=== PATIENT | female | born 1980 | race Caucasian/White ===

== ENCOUNTER 2021-08-15 04:02 | Emergency (ER) | payer OTHER ==
[2021-08-15] MEDS ORDERED: Hydromorphone 1 mg/ml Injection IV ONE (04:36)
[2021-08-15] MEDS ORDERED: Zofran 4 MG/2 ML VIAL IV ONE (04:36)
[2021-08-15] MEDS ORDERED: Sodium Chloride 0.9% 1000 ML 1,000 ML IV STA (04:36)
--- NOTE | 2021-08-15 04:39 | ERPHSYRPT ---
- History of Present Illness Time Seen by Provider: 08/15/21 04:30 Historian: patient, family Exam Limitations: no limitations Patient Subjective Stated Complaint: Pt states "My upper right sided of my back started hurting around 1430 and I started vomiting." Triage Nursing Assessment: Pt ambulatory to bed by self, pt alert and oriented x3, pt c/o R upper back pain since 1430, pt has vomited 6+ times since then, pt denies diarrhea, pt still has all organs including gallbladder, pt is afebrile, pt rates pain 9/10 Physician History: This is a 40-year-old white female who at 230 this morning had sudden onset of right back pain with multiple episodes of vomiting. She had this symptom a week ago. Last night she ate British food. A week ago she had tater tot casserole. Patient felt nauseated, bloated belching gassy. She does not have chest pain and denies abdominal pain. Timing/Duration: today Quality: aching Abdominal Pain Onset Location: flank (Right) Pain Radiation: no radiation Severity of Pain-Max: moderate Severity of Pain-Current: moderate Modifying Factors: Improves With: vomiting Associated Symptoms: nausea, vomiting Previous symptoms: same symptoms as today, no recent treatment Allergies/Adverse Reactions: No Known Drug Allergies Allergy (Verified 08/15/21 04:19) Hx Tetanus, Diphtheria Vaccination/Date Given: Yes Hx Influenza Vaccination/Date Given: No Hx Pneumococcal Vaccination/Date Given: No Immunizations Up to Date: Yes Travel Risk - International Travel Have you traveled outside of the country in past 3 weeks: No - Coronavirus Screening Are you exhibiting any of the following symptoms?: No Close contact with a COVID-19 positive Pt in past 14-21 Days: No - Vaccine Status Have you recieved a Covid-19 vaccination: No - Review of Systems Constitutional: No Symptoms Eyes: No Symptoms Ears, Nose, & Throat: No Symptoms Respiratory: No Symptoms Cardiac: No Symptoms Abdominal/Gastrointestinal: Nausea, Vomiting, Appetite Changes Genitourinary Symptoms: Flank Pain (Right flank) Musculoskeletal: No Symptoms Skin: No Symptoms Neurological: No Symptoms Psychological: No Symptoms Endocrine: No Symptoms Hematologic/Lymphatic: No Symptoms Immunological/Allergic: No Symptoms All Other Systems: Reviewed and Negative - Past Medical History Pertinent Past Medical History: No - Past Surgical History Past Surgical History: No - Social History Smoking Status: Current every day smoker Exposure to second hand smoke: Yes Drug Use: none Patient Lives Alone: No - Female History Hx Last Menstrual Period: 07/15/2021 Hx Now: No - Nursing Vital Signs Nursing Vital Signs: Initial Vital Signs Temperature 97.2 F 08/15/21 04:20 Pulse Rate 63 08/15/21 04:20 Respiratory Rate 16 08/15/21 04:20 Blood Pressure 143/66 08/15/21 04:20 O2 Sat by Pulse Oximetry 99 08/15/21 04:20 Pain Scale Pain Intensity [Right Back] 9 Pain Intensity 4 - Physical Exam General Appearance: mild distress, alert, anxiety Eye Exam: PERRL/EOMI, eyes nml inspection Ears, Nose, Throat Exam: normal ENT inspection, moist mucous membranes Neck Exam: normal inspection, non-tender, supple, full range of motion Respiratory Exam: normal breath sounds, lungs clear, No chest tenderness, No respiratory distress Cardiovascular Exam: regular rate/rhythm, normal heart sounds, normal peripheral pulses Gastrointestinal/Abdomen Exam: soft, normal bowel sounds, No tenderness Pelvic Exam: not done Rectal Exam: not done Back Exam: normal inspection, normal range of motion, other (Right back/scapular pain), No CVA tenderness, No vertebral tenderness Extremity Exam: normal inspection, normal range of motion, pelvis stable Neurologic Exam: alert, oriented x 3, cooperative, 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, normal mood/affect, nml cerebellar function, nml station & gait, sensation nml Skin Exam: normal color, warm, dry Lymphatic Exam: No adenopathy SpO2 Interpretation: normal SpO2: 99 O2 Delivery: Room Air - Course Nursing assessment & vital signs reviewed: Yes Ordered Tests: Active Orders 24 hr Category Date Time Status IV Insertion STAT Care 08/15/21 04:36 Active ABDOMEN AND PELVIS W/0 CONTRAS [CT] Stat Exams 08/15/21 04:37 Taken AMYLASE Stat Lab 08/15/21 04:42 Completed CBC W DIFF Stat Lab 08/15/21 04:42 Completed CMP Stat Lab 08/15/21 04:42 Completed CULTURE,URINE Stat Lab 08/15/21 04:39 Received HCG,QUALITATIVE URINE Stat Lab 08/15/21 04:38 Completed LIPASE Stat Lab 08/15/21 04:42 Completed Lactic Acid Stat Lab 08/15/21 04:45 Completed UA W/RFX CULTURE Stat Lab 08/15/21 04:39 Completed Medication Summary Discontinued Medications Generic Name Dose Route Start Last Admin Trade Name Gonzalo PRN Reason Stop Dose Admin Hydromorphone HCl 1 mg 08/15/21 04:36 08/15/21 04:42 Hydromorphone 1 Mg/1ml Inj 1 Mg/Ml Syringe IV 08/15/21 04:37 1 mg STAT ONE Administration Hydromorphone HCl Confirm 08/15/21 04:40 Hydromorphone 1 Mg/1ml Inj 1 Mg/Ml Syringe Administered 08/15/21 04:41 Dose 1 mg .ROUTE .STK-MED ONE Sodium Chloride 1,000 mls @ 999 mls/hr 08/15/21 04:36 08/15/21 06:28 Sodium Chloride 0.9% 1000 Ml IV 08/15/21 05:36 Infused .Q1H1M STA Infusion Sodium Chloride Confirm 08/15/21 04:40 Sodium Chloride 0.9% 1000 Ml Administered 08/15/21 04:41 Dose 1,000 mls @ ud .ROUTE .STK-MED ONE Ondansetron HCl 4 mg 08/15/21 04:36 08/15/21 04:42 Ondansetron Hcl 4 Mg/2 Ml Vial IV 08/15/21 04:37 4 mg STAT ONE Administration Ondansetron HCl Confirm 08/15/21 04:40 Ondansetron Hcl 4 Mg/2 Ml Vial Administered 08/15/21 04:41 Dose 4 mg .ROUTE .STK-MED ONE Lab/Rad Data: Laboratory Result Diagrams 08/15/21 04:42 08/15/21 04:42 Laboratory Results 08/15/21 08/15/21 08/15/21 Range/Units 04:45 04:42 04:42 WBC 14.5 H (4.0-10.5) x10^3/uL RBC 4.44 (4.1-5.4) x10^6/uL Hgb 13.7 (12.0-16.0) g/dL Hct 41.6 (35-47) % MCV 93.7 (78-100) fL MCH 30.9 (26-32) pg MCHC 32.9 (32-36) g/dL RDW 13.2 (11.5-14.0) % Plt Count 278 (150-450) x10^3/uL MPV 8.6 (7.5-11.0) fL Gran % 67.9 H (36.0-66.0) % Immature Gran % (Auto) 0.4 (0.00-0.4) % Nucleat RBC Rel Count 0.0 (0.00-0.1) % Eos # (Auto) 0.43 (0-0.5) x10^3/uL Immature Gran # (Auto) 0.06 H (0.00-0.03) x10^3u/L Absolute Lymphs (auto) 2.96 (1.0-4.6) x10^3/uL Absolute Monos (auto) 1.08 (0.0-1.3) x10^3/uL Absolute Nucleated RBC 0.00 (0.00-0.01) x10^3u/L Lymphocytes % 20.4 L (24.0-44.0) % Monocytes % 7.5 (0.0-12.0) % Eosinophils % 3.0 (0.00-5.0) % Basophils % 0.8 (0.0-0.4) % Absolute Granulocytes 9.85 H (1.4-6.9) x10^3/uL Basophils # 0.11 (0-0.4) x10^3/uL Sodium 139 (137-145) mmol/L Potassium 3.5 (3.5-5.1) mmol/L Chloride 103 (98-107) mmol/L Carbon Dioxide 27 (22-30) mmol/L Anion Gap 12.9 (5-15) MEQ/L BUN 13 (7-17) mg/dL Creatinine 0.74 (0.52-1.04) mg/dL Estimated GFR > 60.0 ML/MIN Glucose 120 H (74-106) mg/dL Lactic Acid 1.0 (0.4-2.0) Calcium 9.5 (8.4-10.2) mg/dL Total Bilirubin 1.70 H (0.2-1.3) mg/dL AST 22 (14-36) U/L ALT 15 (0-35) U/L Alkaline Phosphatase 72 (38-126) U/L Serum Total Protein 8.2 (6.3-8.2) g/dL Albumin 4.4 (3.5-5.0) g/dL Amylase 70 (30-110) U/L Lipase 113 (23-300) U/L Urinalys Dipstick Clnc Urine Color (YELLOW) Urine Appearance (CLEAR) Urine pH (5-6) Ur Specific [place] (1.005-1.025) POC Urine Protein Conf (Negative) Urine Ketones (NEGATIVE) Urine Nitrite (NEGATIVE) Urine Bilirubin (NEGATIVE) Urine Urobilinogen (0-1) mg/dL Urine Leukocytes (NEGATIVE) Urine WBC (Auto) (0-5) /HPF Urine RBC (Auto) (0-2) /HPF U Epithel Cells (Auto) (FEW) /HPF Urine Bacteria (Auto) (NEGATIVE) /HPF Urine RBC (0-5) Eric/ul Urine Mucus (Auto) (NEGATIVE) /HPF Ur Culture Indicated? Urine Glucose (NEGATIVE) mg/dL Urine HCG, Qual (Negative) 08/15/21 08/15/21 Range/Units 04:39 04:38 WBC (4.0-10.5) x10^3/uL RBC (4.1-5.4) x10^6/uL Hgb (12.0-16.0) g/dL Hct (35-47) % MCV (78-100) fL MCH (26-32) pg MCHC (32-36) g/dL RDW (11.5-14.0) % Plt Count (150-450) x10^3/uL MPV (7.5-11.0) fL Gran % (36.0-66.0) % Immature Gran % (Auto) (0.00-0.4) % Nucleat RBC Rel Count (0.00-0.1) % Eos # (Auto) (0-0.5) x10^3/uL Immature Gran # (Auto) (0.00-0.03) x10^3u/L Absolute Lymphs (auto) (1.0-4.6) x10^3/uL Absolute Monos (auto) (0.0-1.3) x10^3/uL Absolute Nucleated RBC (0.00-0.01) x10^3u/L Lymphocytes % (24.0-44.0) % Monocytes % (0.0-12.0) % Eosinophils % (0.00-5.0) % Basophils % (0.0-0.4) % Absolute Granulocytes (1.4-6.9) x10^3/uL Basophils # (0-0.4) x10^3/uL Sodium (137-145) mmol/L Potassium (3.5-5.1) mmol/L Chloride (98-107) mmol/L Carbon Dioxide (22-30) mmol/L Anion Gap (5-15) MEQ/L BUN (7-17) mg/dL Creatinine (0.52-1.04) mg/dL Estimated GFR ML/MIN Glucose (74-106) mg/dL Lactic Acid (0.4-2.0) Calcium (8.4-10.2) mg/dL Total Bilirubin (0.2-1.3) mg/dL AST (14-36) U/L ALT (0-35) U/L Alkaline Phosphatase (38-126) U/L Serum Total Protein (6.3-8.2) g/dL Albumin (3.5-5.0) g/dL Amylase (30-110) U/L Lipase (23-300) U/L Urinalys Dipstick Clnc MAIN LAB Urine Color YELLOW (YELLOW) Urine Appearance CLEAR (CLEAR) Urine pH 5.5 (5-6) Ur Specific [place] >=1.030 (1.005-1.025) POC Urine Protein Conf NEGATIVE (Negative) Urine Ketones NEGATIVE (NEGATIVE) Urine Nitrite NEGATIVE (NEGATIVE) Urine Bilirubin NEGATIVE (NEGATIVE) Urine Urobilinogen 0.2 (0-1) mg/dL Urine Leukocytes TRACE (NEGATIVE) Urine WBC (Auto) 0-2 (0-5) /HPF Urine RBC (Auto) 0-2 (0-2) /HPF U Epithel Cells (Auto) RARE (FEW) /HPF Urine Bacteria (Auto) RARE (NEGATIVE) /HPF Urine RBC TRACE-LYSED (0-5) Eric/ul Urine Mucus (Auto) SLIGHT (NEGATIVE) /HPF Ur Culture Indicated? YES Urine Glucose NEGATIVE (NEGATIVE) mg/dL Urine HCG, Qual NEGATIVE (Negative) - Progress Progress: improved, re-examined Progress Note: 08/15/21 06:47 CAT scan of abdomen pelvis showed multiple layering gallstones. There is a thickened gallbladder wall suggesting cholecystitis. No evidence of pericholecystic fluid. Medical decision making: This patient has had and will have recurrent symptoms secondary to evidence of cholecystitis and cholelithiasis. We will try to make arrangements for her to have an outpatient gallbladder ultrasound. Patient states that her symptoms have significantly improved but she can still feel a little bit of the pain. 08/15/21 06:51 Counseled pt/family regarding: lab results, diagnosis, need for follow-up, rad results - Departure Departure Disposition: Home Clinical Impression: Cholecystitis with cholelithiasis Condition: Stable Critical Care Time: No Referrals: OSMIN DUNHAM MD [Primary Care Provider] - Follow up/PCP as directed Additional Instructions: Avoid fatty greasy spicy foods. Take your medication as prescribed. Follow-up at your scheduled gallbladder ultrasound date. Follow-up with your primary care doctor for referral to a general surgeon to discuss the indications for cholecystectomy. Return to the emergency department if symptoms worsen Prescriptions: Ondansetron ODT 4 MG [Zofran Odt 4 mg] 4 mg PO Q6H PRN PRN #10 tablet PRN Reason: Vomiting Hydrocodone/APAP 5/325 [[place] 5/325 mg] 1 each PO Q8H PRN PRN #9 tablet MDD 9 PRN Reason: Pain
[2021-08-15] MEDS ORDERED: Zofran 4 MG/2 ML VIAL ONE (04:40)
[2021-08-15] MEDS ORDERED: Hydromorphone 1 mg/ml Injection ONE (04:40)
[2021-08-15] MEDS ORDERED: Sodium Chloride 0.9% 1000 ML 1,000 ML ONE (04:40)
[2021-08-15 04:45] LABS: Absolute Neutrophil Ct (ANC) 9.85 x10^3/uL (1.4-6.9); Basophil (Absolute #) 0.11 x10^3/uL (0-0.4); Eosinophil (Absolute #) 0.43 x10^3/uL (0-0.5); Hematocrit 41.6 % (35-47); Hemoglobin 13.7 g/dL (12.0-16.0); Lymphocyte (Absolute #) 2.96 x10^3/uL (1.0-4.6); Lymphocytes % 20.4 % (24.0-44.0); Mean Cell Volume 93.7 fL (78-100); Mean Corpuscular Hemoglobin 30.9 pg (26-32); Mean Corpuscular Hgb Concent. 32.9 g/dL (32-36); Mean Platelet Volume 8.6 fL (7.5-11.0); Monocyte (Absolute #) 1.08 x10^3/uL (0.0-1.3); Monocytes % 7.5 % (0.0-12.0); Neutrophil % 67.9 % (36.0-66.0); Platelet Count 278 x10^3/uL (150-450); Red Blood Count 4.44 x10^6/uL (4.1-5.4); Red Cell Distribution Width 13.2 % (11.5-14.0); White Blood Count 14.5 x10^3/uL (4.0-10.5)
[2021-08-15 04:52] LABS: Appearance CLEAR (CLEAR); Bacteria RARE /HPF (NEGATIVE); Bilirubin NEGATIVE (NEGATIVE); Dipstick done @ ? MAIN LAB; Epithelial Cells RARE /HPF (FEW); Glucose NEGATIVE (NEGATIVE); Ketones NEGATIVE (NEGATIVE); Mucus SLIGHT /HPF (NEGATIVE); Nitrite NEGATIVE (NEGATIVE); Ph 5.5 (5-6); Protein,Urine Dip NEGATIVE (Negative); RBC 0-2 /HPF (0-2); RBC TRACE-LYSED Ery/ul (0-5); Specific Gravity >=1.030 (1.005-1.025); Urobilinogen 0.2 mg/dL (0-1); WBC 0-2 /HPF (0-5)
[2021-08-15 04:53] LABS: Urine Cultured Indicated? YES
[2021-08-15 04:58] LABS: ALBUMIN 4.4 g/dL (3.5-5.0); ALKALINE PHOSPHATASE 72 U/L (38-126); AMYLASE 70 U/L (30-110); ANION GAP 12.9 MEQ/L (5-15); BLOOD UREA NITROGEN 13 mg/dL (7-17); CHLORIDE 103 mmol/L (98-107); Calcium 9.5 mg/dL (8.4-10.2); Carbon Dioxide 27 mmol/L (22-30); Creatinine 1 0.74 mg/dL (0.52-1.04); EST GLOMERULAR FILTRATION RATE > 60.0 ML/MIN; Glucose 120 mg/dL (74-106); LIPASE 113 U/L (23-300); Potassium 3.5 mmol/L (3.5-5.1); SGOT/AST 22 U/L (14-36); SGPT/ALT 15 U/L (0-35); SODIUM 139 mmol/L (137-145); Total Protein 8.2 g/dL (6.3-8.2)
[2021-08-15 06:46] VITALS: O2SAT 99
--- NOTE | 2021-08-15 07:08 | XRAY ---
Indication: Right flank pain. Nausea and vomiting. Multiple contiguous axial images obtained through the abdomen and pelvis without contrast. Comparison: None Lung bases demonstrates minimal dependent atelectasis. No infiltrate or effusion. Heart is not enlarged. Noncontrasted stomach and bowel loops appear nonobstructed with normal appendix. Gallbladder mildly distended with multiple gallstones, largest 1.7 cm. No free fluid/air. Remaining liver, gallbladder, pancreas, spleen, adrenal glands, kidneys, ureters, bladder, uterus, and aorta are unremarkable for noncontrast exam. Osseous structures intact. No ventral or inguinal hernias. Impression: 1. Mild distended gallbladder with multiple gallstones. Gallbladder sonogram may yield further information. 2. Remaining CT abdomen/pelvis without contrast exam is negative. Comment: Preliminary interpretation made by C. No critical discrepancy..
[2021-08-15 07:11] VITALS: BP 113/78; PULSE 66
== END 2021-08-15 07:11 | disposition home or self-care (01) ==
LOC: ED 04:02
DX: K80.10 Calculus of gallbladder with chronic cholecystitis without obstruction (principal); M54.9 Dorsalgia, unspecified; R11.2 Nausea with vomiting, unspecified; Z72.0 Tobacco use; Z28.310 Unvaccinated for COVID-19; Z79.891 Long term (current) use of opiate analgesic
CPT/HCPCS: 36000; 36415; 74176; 80053; 81015; 81025; 82150; 83605; 83690; 85025; 87086; 96360; 96374; 96375; 99284; J1170; J2405

== ENCOUNTER 2021-09-01 19:57 | Emergency (ER) | payer OTHER ==
[2021-09-01 20:18] VITALS: O2SAT 99
[2021-09-01 20:32] LABS: Absolute Neutrophil Ct (ANC) 6.96 x10^3/uL (1.4-6.9); Basophil (Absolute #) 0.06 x10^3/uL (0-0.4); Eosinophil % 3.3 % (0.00-5.0); Eosinophil (Absolute #) 0.34 x10^3/uL (0-0.5); Hematocrit 39.7 % (35-47); Hemoglobin 13.2 g/dL (12.0-16.0); Lymphocyte (Absolute #) 2.13 x10^3/uL (1.0-4.6); Lymphocytes % 20.6 % (24.0-44.0); Mean Corpuscular Hemoglobin 31.6 pg (26-32); Mean Corpuscular Hgb Concent. 33.2 g/dL (32-36); Mean Platelet Volume 8.8 fL (7.5-11.0); Monocyte (Absolute #) 0.79 x10^3/uL (0.0-1.3); Monocytes % 7.6 % (0.0-12.0); Neutrophil % 67.3 % (36.0-66.0); Platelet Count 275 x10^3/uL (150-450); Red Blood Count 4.18 x10^6/uL (4.1-5.4); Red Cell Distribution Width 13.6 % (11.5-14.0); White Blood Count 10.3 x10^3/uL (4.0-10.5)
[2021-09-01 20:41] LABS: Appearance CLEAR (CLEAR); Bilirubin NEGATIVE (NEGATIVE); Dipstick done @ ? MAIN LAB; Glucose NEGATIVE (NEGATIVE); Ketones NEGATIVE (NEGATIVE); Nitrite NEGATIVE (NEGATIVE); Ph 6.5 (5-6); Protein,Urine Dip NEGATIVE (Negative); RBC NEGATIVE Ery/ul (0-5); Specific Gravity >=1.030 (1.005-1.025); Urobilinogen 0.2 mg/dL (0-1)
[2021-09-01 20:42] LABS: Bacteria NONE SEEN /HPF (NEGATIVE); Epithelial Cells RARE /HPF (FEW); Mucus SLIGHT /HPF (NEGATIVE); Urine Cultured Indicated? NO; WBC 0-2 /HPF (0-5)
[2021-09-01 20:43] LABS: ALBUMIN 4.3 g/dL (3.5-5.0); ALKALINE PHOSPHATASE 77 U/L (38-126); AMYLASE 72 U/L (30-110); ANION GAP 13.4 MEQ/L (5-15); BLOOD UREA NITROGEN 15 mg/dL (7-17); CHLORIDE 107 mmol/L (98-107); Calcium 9.2 mg/dL (8.4-10.2); Carbon Dioxide 23 mmol/L (22-30); Creatinine 1 0.61 mg/dL (0.52-1.04); EST GLOMERULAR FILTRATION RATE > 60.0 ML/MIN; Glucose 130 mg/dL (74-106); LIPASE 95 U/L (23-300); SGOT/AST 67 U/L (14-36); SGPT/ALT 41 U/L (0-35); SODIUM 139 mmol/L (137-145)
--- NOTE | 2021-09-01 22:01 | ERPHSYRPT ---
- History of Present Illness Time Seen by Provider: 09/01/21 20:25 Historian: patient Exam Limitations: no limitations Patient Subjective Stated Complaint: pt states "My gallbladder has been acting up again today." Triage Nursing Assessment: Pt ambulatory to cot by self, pt alert and oriented x3, pt was having pain in upper back today but took norco 1 hr prior to arrival, pt was released from [facility] yesterday d/t gall stones but still having pain Physician History: Patient is a 40-year-old female who presents with a complaint of abdominal pain which has resolved since taking pain medicine at home. She was seen in the ER here on she was found to have a biliary colic. She was later hospitalized at [facility] given IV antibiotics ultrasound showed a gallstone filled gallbladder she then had a CT scan and ultrasound last Tuesday which confirmed those findings. She presents tonight seeking to expedite her appointment with Dr. Rudolph Parrish. Timing/Duration: intermittent Activities at Onset: none Quality: cramping, throbbing Abdominal Pain Onset Location: RUQ Pain Radiation: back Severity of Pain-Max: severe Severity of Pain-Current: none Associated Symptoms: back, nausea, vomiting Previous symptoms: same symptoms as today Allergies/Adverse Reactions: No Known Drug Allergies Allergy (Verified 09/01/21 20:23) Hx Tetanus, Diphtheria Vaccination/Date Given: Yes Hx Influenza Vaccination/Date Given: No Hx Pneumococcal Vaccination/Date Given: No Immunizations Up to Date: Yes Travel Risk - International Travel Have you traveled outside of the country in past 3 weeks: No - Coronavirus Screening Are you exhibiting any of the following symptoms?: No Close contact with a COVID-19 positive Pt in past 14-21 Days: No - Vaccine Status Have you recieved a Covid-19 vaccination: No - Review of Systems Constitutional: No Fever, No Chills Eyes: No Symptoms Ears, Nose, & Throat: No Symptoms Respiratory: No Cough, No Dyspnea Cardiac: No Chest Pain, No Edema, No Syncope Abdominal/Gastrointestinal: Abdominal Pain, Nausea, Vomiting, No Diarrhea Genitourinary Symptoms: No Dysuria Musculoskeletal: No Back Pain, No Neck Pain Skin: No Rash Neurological: No Dizziness, No Focal Weakness, No Sensory Changes Psychological: No Symptoms Endocrine: No Symptoms All Other Systems: Reviewed and Negative - Past Medical History Pertinent Past Medical History: No Neurological History: No Pertinent History ENT History: No Pertinent History Cardiac History: No Pertinent History Respiratory History: No Pertinent History Endocrine Medical History: No Pertinent History Musculoskeletal History: No Pertinent History GI Medical History: No Pertinent History History: No Pertinent History Psycho-Social History: No Pertinent History Female Reproductive Disorders: No Pertinent History - Past Surgical History Past Surgical History: No - Social History Smoking Status: Current some day smoker Exposure to second hand smoke: No Drug Use: none Patient Lives Alone: No - Female History Hx Last Menstrual Period: unknown- last month sometime Hx Now: No - Nursing Vital Signs Nursing Vital Signs: Initial Vital Signs Temperature 97.5 F 09/01/21 20:16 Pulse Rate 75 09/01/21 20:16 Respiratory Rate 18 09/01/21 20:16 Blood Pressure 103/82 09/01/21 20:16 O2 Sat by Pulse Oximetry 99 09/01/21 20:16 Pain Scale Pain Intensity 0 - Physical Exam General Appearance: no apparent distress, alert Eye Exam: PERRL/EOMI, eyes nml inspection Ears, Nose, Throat Exam: normal ENT inspection, pharynx normal, moist mucous membranes Neck Exam: normal inspection, non-tender, supple, full range of motion Respiratory Exam: normal breath sounds, lungs clear, No respiratory distress Cardiovascular Exam: regular rate/rhythm, normal heart sounds Gastrointestinal/Abdomen Exam: soft, No tenderness, No mass Back Exam: normal inspection, normal range of motion, No CVA tenderness, No vertebral tenderness Extremity Exam: normal inspection, normal range of motion, pelvis stable Neurologic Exam: alert, oriented x 3, cooperative, normal mood/affect, nml cerebellar function, sensation nml, No motor deficits Skin Exam: normal color, warm, dry SpO2: 99 - Course Nursing assessment & vital signs reviewed: Yes Ordered Tests: Active Orders 24 hr Category Date Time Status AMYLASE Stat Lab 09/01/21 20:30 Completed CBC W DIFF Stat Lab 09/01/21 20:30 Completed CMP Stat Lab 09/01/21 20:30 Completed LIPASE Stat Lab 09/01/21 20:30 Completed Lactic Acid Stat Lab 09/01/21 20:19 Completed UA W/RFX CULTURE Stat Lab 09/01/21 20:31 Completed Lab/Rad Data: Laboratory Result Diagrams 09/01/21 20:30 09/01/21 20:30 Laboratory Results 06/28/22 06/28/22 06/28/22 Range/Units 20:31 20:30 20:30 WBC 10.3 (4.0-10.5) x10^3/uL RBC 4.18 (4.1-5.4) x10^6/uL Hgb 13.2 (12.0-16.0) g/dL Hct 39.7 (35-47) % MCV 95.0 (78-100) fL MCH 31.6 (26-32) pg MCHC 33.2 (32-36) g/dL RDW 13.6 (11.5-14.0) % Plt Count 275 (150-450) x10^3/uL MPV 8.8 (7.5-11.0) fL Gran % 67.3 H (36.0-66.0) % Immature Gran % (Auto) 0.6 H (0.00-0.4) % Nucleat RBC Rel Count 0.0 (0.00-0.1) % Eos # (Auto) 0.34 (0-0.5) x10^3/uL Immature Gran # (Auto) 0.06 H (0.00-0.03) x10^3u/L Absolute Lymphs (auto) 2.13 (1.0-4.6) x10^3/uL Absolute Monos (auto) 0.79 (0.0-1.3) x10^3/uL Absolute Nucleated RBC 0.00 (0.00-0.01) x10^3u/L Lymphocytes % 20.6 L (24.0-44.0) % Monocytes % 7.6 (0.0-12.0) % Eosinophils % 3.3 (0.00-5.0) % Basophils % 0.6 (0.0-0.4) % Absolute Granulocytes 6.96 H (1.4-6.9) x10^3/uL Basophils # 0.06 (0-0.4) x10^3/uL Sodium 139 (137-145) mmol/L Potassium 4.0 (3.5-5.1) mmol/L Chloride 107 (98-107) mmol/L Carbon Dioxide 23 (22-30) mmol/L Anion Gap 13.4 (5-15) MEQ/L BUN 15 (7-17) mg/dL Creatinine 0.61 (0.52-1.04) mg/dL Estimated GFR > 60.0 ML/MIN Glucose 130 H (74-106) mg/dL Lactic Acid (0.4-2.0) Calcium 9.2 (8.4-10.2) mg/dL Total Bilirubin 1.50 H (0.2-1.3) mg/dL AST 67 H (14-36) U/L ALT 41 H (0-35) U/L Alkaline Phosphatase 77 (38-126) U/L Serum Total Protein 8.0 (6.3-8.2) g/dL Albumin 4.3 (3.5-5.0) g/dL Amylase 72 (30-110) U/L Lipase 95 (23-300) U/L Urinalys Dipstick Clnc MAIN LAB Urine Color YELLOW (YELLOW) Urine Appearance CLEAR (CLEAR) Urine pH 6.5 (5-6) Ur Specific [place] >=1.030 (1.005-1.025) POC Urine Protein Conf NEGATIVE (Negative) Urine Ketones NEGATIVE (NEGATIVE) Urine Nitrite NEGATIVE (NEGATIVE) Urine Bilirubin NEGATIVE (NEGATIVE) Urine Urobilinogen 0.2 (0-1) mg/dL Urine Leukocytes NEGATIVE (NEGATIVE) Urine WBC (Auto) 0-2 (0-5) /HPF Urine RBC (Auto) NONE (0-2) /HPF U Epithel Cells (Auto) RARE (FEW) /HPF Urine Bacteria (Auto) NONE SEEN (NEGATIVE) /HPF Urine RBC NEGATIVE (0-5) Eric/ul Urine Mucus (Auto) SLIGHT (NEGATIVE) /HPF Ur Culture Indicated? NO Urine Glucose NEGATIVE (NEGATIVE) mg/dL 09/01/21 Range/Units 20:19 WBC (4.0-10.5) x10^3/uL RBC (4.1-5.4) x10^6/uL Hgb (12.0-16.0) g/dL Hct (35-47) % MCV (78-100) fL MCH (26-32) pg MCHC (32-36) g/dL RDW (11.5-14.0) % Plt Count (150-450) x10^3/uL MPV (7.5-11.0) fL Gran % (36.0-66.0) % Immature Gran % (Auto) (0.00-0.4) % Nucleat RBC Rel Count (0.00-0.1) % Eos # (Auto) (0-0.5) x10^3/uL Immature Gran # (Auto) (0.00-0.03) x10^3u/L Absolute Lymphs (auto) (1.0-4.6) x10^3/uL Absolute Monos (auto) (0.0-1.3) x10^3/uL Absolute Nucleated RBC (0.00-0.01) x10^3u/L Lymphocytes % (24.0-44.0) % Monocytes % (0.0-12.0) % Eosinophils % (0.00-5.0) % Basophils % (0.0-0.4) % Absolute Granulocytes (1.4-6.9) x10^3/uL Basophils # (0-0.4) x10^3/uL Sodium (137-145) mmol/L Potassium (3.5-5.1) mmol/L Chloride (98-107) mmol/L Carbon Dioxide (22-30) mmol/L Anion Gap (5-15) MEQ/L BUN (7-17) mg/dL Creatinine (0.52-1.04) mg/dL Estimated GFR ML/MIN Glucose (74-106) mg/dL Lactic Acid 1.5 (0.4-2.0) Calcium (8.4-10.2) mg/dL Total Bilirubin (0.2-1.3) mg/dL AST (14-36) U/L ALT (0-35) U/L Alkaline Phosphatase (38-126) U/L Serum Total Protein (6.3-8.2) g/dL Albumin (3.5-5.0) g/dL Amylase (30-110) U/L Lipase (23-300) U/L Urinalys Dipstick Clnc Urine Color (YELLOW) Urine Appearance (CLEAR) Urine pH (5-6) Ur Specific [place] (1.005-1.025) POC Urine Protein Conf (Negative) Urine Ketones (NEGATIVE) Urine Nitrite (NEGATIVE) Urine Bilirubin (NEGATIVE) Urine Urobilinogen (0-1) mg/dL Urine Leukocytes (NEGATIVE) Urine WBC (Auto) (0-5) /HPF Urine RBC (Auto) (0-2) /HPF U Epithel Cells (Auto) (FEW) /HPF Urine Bacteria (Auto) (NEGATIVE) /HPF Urine RBC (0-5) Eric/ul Urine Mucus (Auto) (NEGATIVE) /HPF Ur Culture Indicated? Urine Glucose (NEGATIVE) mg/dL - Progress Progress: improved Progress Note: 09/01/21 21:59 Patient is pain-free at the present time white count is normal and the amylase and lipase are likewise normal. It is her desire to have a HIDA scan and the results sent to Dr. Rudolph Parrish - Departure Departure Disposition: Home Clinical Impression: Biliary colic Condition: Stable Critical Care Time: No Referrals: SHERIE FORD, [employer] [Primary Care Provider] - Follow up/PCP as directed Instructions: Gallstones (DC)
[2021-09-01 22:06] VITALS: BP 105/68; PULSE 68
== END 2021-09-01 22:10 | disposition home or self-care (01) ==
LOC: ED 19:57
DX: K80.50 Calculus of bile duct without cholangitis or cholecystitis without obstruction (principal); R10.11 Right upper quadrant pain; Z72.0 Tobacco use; Z28.310 Unvaccinated for COVID-19
CPT/HCPCS: 36000; 36415; 80053; 81015; 82150; 83605; 83690; 85025; 99284

== ENCOUNTER 2021-09-13 16:37 | Observation (INO) | payer OTHER ==
--- NOTE | 2021-09-13 17:41 | ERPHSYRPT ---
- History of Present Illness Time Seen by Provider: 09/13/21 17:39 Historian: patient Exam Limitations: no limitations Patient Subjective Stated Complaint: PT HERE FOR BACK PAIN THAT RADITATES TO ABD FOR AN HOUR TODAY, SHE SEEN DR SAHNI TUESDAY AND HE TOLD HER TO COME IN FOR ANY PAIN, Triage Nursing Assessment: PT ALERT, WALKED IN, RESP EASY, SKIN W/D/P. ABD SOFT NO EDEMA Physician History: Patient is 40-year-old female came to the emergency room with right upper quadrant pain which is radiating to the back and right upper shoulder. Patient has chronic cholecystitis and recently was seen by surgeon Dr. Sahni who advised him surgical intervention. She is scheduled for surgery next week but Dr. Sahni told her that if her pain come back she needs to come to the emergency room and she is advised to inform the emergency room physician to call Dr. Sahni and he will consider her surgery. Patient denies any fever chills nausea or vomiting. Timing/Duration: today Quality: cramping Abdominal Pain Onset Location: RUQ Pain Radiation: scapula, shoulder, back Severity of Pain-Max: moderate Severity of Pain-Current: moderate Modifying Factors: Improves With: nothing Associated Symptoms: denies symptoms Previous symptoms: same symptoms as today Allergies/Adverse Reactions: No Known Drug Allergies Allergy (Verified 09/13/21 17:12) Home Medications: No Reportable Medications [No Reported Medications] 09/13/21 [History] Hx Tetanus, Diphtheria Vaccination/Date Given: No Hx Influenza Vaccination/Date Given: No Hx Pneumococcal Vaccination/Date Given: No Immunizations Up to Date: Yes Travel Risk - International Travel Have you traveled outside of the country in past 3 weeks: No - Coronavirus Screening Are you exhibiting any of the following symptoms?: No - Vaccine Status Have you recieved a Covid-19 vaccination: No - Review of Systems Constitutional: No Fever, No Chills Eyes: No Symptoms Ears, Nose, & Throat: No Symptoms Respiratory: No Cough, No Dyspnea Cardiac: No Chest Pain, No Edema, No Syncope Abdominal/Gastrointestinal: Abdominal Pain, No Nausea, No Vomiting, No Diarrhea Genitourinary Symptoms: No Dysuria Musculoskeletal: No Back Pain, No Neck Pain Skin: No Rash Neurological: No Dizziness, No Focal Weakness, No Sensory Changes Psychological: No Symptoms Endocrine: No Symptoms All Other Systems: Reviewed and Negative - Past Medical History Pertinent Past Medical History: No Neurological History: No Pertinent History ENT History: No Pertinent History Cardiac History: No Pertinent History Respiratory History: No Pertinent History Endocrine Medical History: No Pertinent History Musculoskeletal History: No Pertinent History GI Medical History: No Pertinent History History: No Pertinent History Psycho-Social History: No Pertinent History Female Reproductive Disorders: No Pertinent History - Past Surgical History Past Surgical History: No - Social History Smoking Status: Current some day smoker Exposure to second hand smoke: No Drug Use: none Patient Lives Alone: No - Female History Hx Last Menstrual Period: LAST WEEK Hx Now: No - Nursing Vital Signs Nursing Vital Signs: Initial Vital Signs Temperature 97.3 F 09/13/21 17:17 Pulse Rate 63 09/13/21 17:17 Respiratory Rate 18 09/13/21 17:17 Blood Pressure 104/67 09/13/21 17:17 O2 Sat by Pulse Oximetry 100 09/13/21 17:17 Pain Scale Pain Intensity 5 - Physical Exam General Appearance: no apparent distress, alert Eye Exam: PERRL/EOMI, eyes nml inspection Ears, Nose, Throat Exam: normal ENT inspection, pharynx normal, moist mucous membranes Neck Exam: normal inspection, non-tender, supple, full range of motion Respiratory Exam: normal breath sounds, lungs clear, No respiratory distress Cardiovascular Exam: regular rate/rhythm, normal heart sounds Gastrointestinal/Abdomen Exam: soft, tenderness (RUQ), No mass Back Exam: normal inspection, normal range of motion, No CVA tenderness, No vertebral tenderness Extremity Exam: normal inspection, normal range of motion, pelvis stable Neurologic Exam: alert, oriented x 3, cooperative, normal mood/affect, nml cerebellar function, sensation nml, No motor deficits Skin Exam: normal color, warm, dry SpO2: 100 - Course Nursing assessment & vital signs reviewed: Yes Lab/Rad Data: [facility]-GALL BLADDER Exam: Radionuclide hepatobiliary scan with gallbladder ejection fraction from 09/03/2021. Comparison: Gallbladder ultrasound from 08/17/2021. Indication: 40-year-old female with known cholelithiasis and thickened gallbladder wall; patient complains of sharp pains around the right rib cage and back radiating circumferentially to the front. Dose: 5.9 mCi of technetium 99m Choletec IV. Findings: Anterior images of the abdomen were obtained periodically for one hour. On the 5 minute image, there is early visualization of the common hepatic duct. On the 10 minute image, there is better visualization of the common hepatic duct and perhaps a portion of the common bile duct. Minimal activity is seen within the proximal small bowel by 10 minutes. Subsequently, increasing activity is seen within the small bowel out to 30 minutes. The gallbladder is first visualized on the 40 minute image. It is also seen on the 60 minute image. No duodenal gastric bile reflux is seen. The patient was subsequently given 8 ounces of Ensure plus. A region of interest was drawn around the gallbladder. as drawn. A time activity curve was generated. Activity within the gallbladder continued to rise between the 0 minute amanda out to 33 minutes (which was the peak activity). Gallbladder activity subsequently diminished slowly over the next 25 minutes. Gallbladder ejection fraction between the 33.5 minute amanda and the 58.5 minute amanda measured only 13% which is decreased. This is abnormal and consistent with gallbladder dysfunction. No duodenal gastric bile reflux is seen. Impression: 1. The gallbladder is first seen on the 40 minute image after the radiotracer administration. This is a bit later than usual, but still within normal limits. No bile duct obstruction or duodenal gastric bile reflux is seen. 2. Because the activity within the gallbladder continued to rise until 33.5 minutes after the patient had completed drinking the 8 ounces of Ensure plus, the gallbladder ejection fraction was calculated between the 33.5 minute amanda (which was peak gallbladder activity) and the 58.5 minute amanda after the patient drank the 8 ounces of Ensure plus. Peak gallbladder ejection fraction measured 13% during this 25 minute span. This is abnormally decreased and consistent with gallbladder dysfunction. - Progress Progress: unchanged Discussed with : Victoria Counseled pt/family regarding: diagnosis, need for follow-up, rad results - Departure Departure Disposition: Observation Clinical Impression: Cholecystitis with cholelithiasis Qualifiers: Cholelithiasis location: gallbladder Cholecystitis acuity: chronic Biliary ob struction: without biliary obstruction Qualified Code(s): K80.10 - Calculus of gallbladder with chronic cholecystitis without obstruction Condition: Stable Critical Care Time: Yes Critical Care Time(excluding separately billable procedures): Critical 30-74 mins Referrals: SHERIE FORD, [facility] [Primary Care Provider] - Follow up/PCP as directed AMANDA SAHNI [Family Provider] - Follow up/PCP as directed
[2021-09-13 18:35] LABS: Absolute Neutrophil Ct (ANC) 8.17 x10^3/uL (1.4-6.9); Basophil (Absolute #) 0.08 x10^3/uL (0-0.4); Eosinophil % 2.5 % (0.00-5.0); Eosinophil (Absolute #) 0.28 x10^3/uL (0-0.5); Hematocrit 42.4 % (35-47); Hemoglobin 13.8 g/dL (12.0-16.0); Lymphocyte (Absolute #) 1.68 x10^3/uL (1.0-4.6); Lymphocytes % 15.1 % (24.0-44.0); Mean Cell Volume 96.1 fL (78-100); Mean Corpuscular Hemoglobin 31.3 pg (26-32); Mean Corpuscular Hgb Concent. 32.5 g/dL (32-36); Monocyte (Absolute #) 0.87 x10^3/uL (0.0-1.3); Monocytes % 7.8 % (0.0-12.0); Neutrophil % 73.7 % (36.0-66.0); Platelet Count 270 x10^3/uL (150-450); Red Blood Count 4.41 x10^6/uL (4.1-5.4); Red Cell Distribution Width 13.5 % (11.5-14.0); White Blood Count 11.1 x10^3/uL (4.0-10.5)
[2021-09-13] MEDS: Sodium Chloride 0.9% 1000 ML 1,000 ML IV SCH (18:35)
[2021-09-13 18:48] LABS: ALBUMIN 4.4 g/dL (3.5-5.0); ALKALINE PHOSPHATASE 232 U/L (38-126); AMYLASE 71 U/L (30-110); ANION GAP 12.7 MEQ/L (5-15); BLOOD UREA NITROGEN 12 mg/dL (7-17); CHLORIDE 103 mmol/L (98-107); Carbon Dioxide 29 mmol/L (22-30); Creatinine 1 0.66 mg/dL (0.52-1.04); EST GLOMERULAR FILTRATION RATE > 60.0 ML/MIN; Glucose 91 mg/dL (74-106); LIPASE 74 U/L (23-300); Potassium 4.7 mmol/L (3.5-5.1); SGOT/AST 233 U/L (14-36); SGPT/ALT 458 U/L (0-35); SODIUM 140 mmol/L (137-145); Total Protein 8.5 g/dL (6.3-8.2)
[2021-09-13 19:00] LABS: Appearance CLEAR (CLEAR); Bilirubin NEGATIVE (NEGATIVE); Dipstick done @ ? MAIN LAB; Epithelial Cells RARE /HPF (FEW); Glucose NEGATIVE (NEGATIVE); Hyaline Casts 0-2 /LPF (0-2); Ketones NEGATIVE (NEGATIVE); Mucus SLIGHT /HPF (NEGATIVE); Nitrite NEGATIVE (NEGATIVE); Protein,Urine Dip NEGATIVE (Negative); RBC NEGATIVE Ery/ul (0-5); Specific Gravity 1.025 (1.005-1.025); Urobilinogen 0.2 mg/dL (0-1); WBC 0-2 /HPF (0-5)
[2021-09-13 19:01] LABS: Bacteria NONE SEEN /HPF (NEGATIVE); Urine Cultured Indicated? NO
[2021-09-13 19:12] LABS: INFLUENZA A NEGATIVE (NEGATIVE); INFLUENZA B NEGATIVE (NEGATIVE); RESPIRATORY SYNCTIAL VIRUS NEGATIVE (Negative); SARS-CoV-2 Xpert Express NEGATIVE (NEGATIVE)
[2021-09-13] MEDS: TYLENOL EXTRA STRENGTH 500 MG PO PRN (19:52)
[2021-09-14] MEDS: Sodium Chloride 0.9% 1000 ML 1,000 ML IV SCH ×2 (03:30→13:39)
[2021-09-14] MEDS: TYLENOL EXTRA STRENGTH 500 MG PO PRN ×2 (09:22→17:05)
[2021-09-14 09:32] LABS: Absolute Neutrophil Ct (ANC) 3.95 x10^3/uL (1.4-6.9); Basophil (Absolute #) 0.05 x10^3/uL (0-0.4); Eosinophil % 3.7 % (0.00-5.0); Eosinophil (Absolute #) 0.25 x10^3/uL (0-0.5); Hematocrit 38.1 % (35-47); Hemoglobin 12.7 g/dL (12.0-16.0); Lymphocyte (Absolute #) 1.91 x10^3/uL (1.0-4.6); Lymphocytes % 28.4 % (24.0-44.0); Mean Cell Volume 95.3 fL (78-100); Mean Corpuscular Hemoglobin 31.8 pg (26-32); Mean Corpuscular Hgb Concent. 33.3 g/dL (32-36); Mean Platelet Volume 8.7 fL (7.5-11.0); Monocyte (Absolute #) 0.54 x10^3/uL (0.0-1.3); Neutrophil % 58.9 % (36.0-66.0); Platelet Count 250 x10^3/uL (150-450); Red Cell Distribution Width 13.5 % (11.5-14.0); White Blood Count 6.7 x10^3/uL (4.0-10.5)
[2021-09-14 09:50] LABS: ALBUMIN 3.6 g/dL (3.5-5.0); Direct Bilirubin 0.1 mg/dL (0.0-0.4); Total Protein 6.9 g/dL (6.3-8.2)
[2021-09-14 09:52] LABS: ALBUMIN 3.8 g/dL (3.5-5.0); ALKALINE PHOSPHATASE 166 U/L (38-126); ANION GAP 11.2 MEQ/L (5-15); BLOOD UREA NITROGEN 9 mg/dL (7-17); CHLORIDE 107 mmol/L (98-107); Carbon Dioxide 26 mmol/L (22-30); EST GLOMERULAR FILTRATION RATE > 60.0 ML/MIN; Glucose 94 mg/dL (74-106); Potassium 3.9 mmol/L (3.5-5.1); SGOT/AST 123 U/L (14-36); SGPT/ALT 331 U/L (0-35); SODIUM 140 mmol/L (137-145); Total Protein 7.4 g/dL (6.3-8.2)
--- NOTE | 2021-09-14 10:33 | XRAY ---
Indication: Abdomen pain. Elevated bilirubin. Two-dimensional right upper quadrant abdominal sonogram performed. Comparison: August 17, 2021. Visualized liver remains homogeneous in echogenicity without hepatomegaly or ascites. Gallbladder again demonstrates multiple intraluminal gallstones with abnormal wall thickening up to 5 mm. No pericholecystic fluid. Common bile duct measures 2.2 mm. No intrahepatic biliary distention. Remaining visualized pancreas and right kidney remains sonographically unremarkable. Right kidney measures 9.5 cm in length. Impression: Stable multiple cholelithiasis with abnormal gallbladder wall thickening again favoring chronic cholecystitis. No new abnormalities.
[2021-09-14] MEDS ORDERED: NORCO 5/325 MG PO PRN (11:27)
[2021-09-14] MEDS ORDERED: ZOFRAN ODT 4 MG PO PRN (11:27)
--- NOTE | 2021-09-14 14:46 | XRAY ---
Indication: Abdomen pain. Gallstones. Elevated liver enzymes. Conventional MRCP performed. Comparison: None Gallbladder is mildly distended with several small intraluminal stones, largest 1.2 cm. No pericholecystic fluid. Common bile duct measures 5.2 mm with 4 mm distal choledochal stone just proximal to the ampulla. No abnormal intra/extrahepatic biliary distention. Pancreatic duct not distended. Visualized liver, pancreas, spleen, adrenal glands, kidneys, aorta, and IVC are unremarkable. Visualized stomach and bowel loops appear nonobstructed. No free fluid. No abnormal bone marrow signal. Impression: Distended gallbladder with multiple small gallstones and 4 mm distal choledochal stone. Remaining MRCP is negative.
--- NOTE | 2021-09-14 15:29 | PCM.SSS ---
History of Present Illness - Chief Complaint Chief Complaint: gall bladder dysfunction, chronic cholecystitis History of Present Illness: is a 40 year old female. came to the emergency room with right upper quadrant pain which is radiating to the back and right upper shoulder. Emir durant has chronic cholecystitis and recently was seen by surgeon Dr. Sahni who advised him surgical intervention. She is scheduled for surgery next week but Dr. Sahni told her that if her pain come back she needs to come to the emergency room and she is advised to inform the emergency room physician to call Dr. Sahni and he will consider her surgery. Patient denies any fever chills nausea or vom iting. Timing/Duration: today Quality: cramping Abdominal Pain Onset Location: RUQ Pain Radiation: scapula, shoulder, back Severity of Pain-Max: moderate Severity of Pain-Current: moderate Modifying Factors: Improves With: nothing Associated Symptoms: denies symptoms Previous symptoms: same symptoms as today - Review of Systems Constitutional: No Fever, No Chills Eyes: No Symptoms Ears, Nose, & Throat: No Symptoms Respiratory: No Cough, No Short Of Breath Cardiac: No Chest Pain, No Edema, No Syncope Abdominal/Gastrointestinal: Abdominal Pain, No Nausea, No Vomiting, No Diarrhea Genitourinary Symptoms: No Dysuria Musculoskeletal: No Back Pain, No Neck Pain Skin: No Rash Neurological: No Dizziness, No Focal Weakness, No Sensory Changes Psychological: No Symptoms Endocrine: No Symptoms Hematologic/Lymphatic: No Symptoms Immunological/Allergic: No Symptoms Medications & Allergies Home Medications: Home Medication List Hydrocodone/Acetaminophen [Hydrocodone-Acetamin 5-325 mg] 1 tab PO Q8H PRN 09/13/21 [History Confirmed 09/13/21] Ondansetron [Ondansetron Odt ] 4 mg PO Q6H PRN 09/13/21 [History Confirmed 09/13/21] Allergies/Adverse Reactions: Allergies Allergy/AdvReac Type Severity Reaction Status Date / Time No Known Drug Allergies Allergy Verified 09/13/21 17:12 - Past Medical History Past Medical History: No Neurological History: No Pertinent History ENT History: No Pertinent History Cardiac History: No Pertinent History Respiratory History: No Pertinent History Endocrine Medical History: No Pertinent History Musculoskelatal History: No Pertinent History GI Medical History: No Pertinent History History: No Pertinent History Pyscho-Social History: No Pertinent History Reproductive Disorders: No Pertinent History - Female History Hx Last Menstrual Period: LAST WEEK Are you now?: No - Past Surgical History Past Surgical History: No - Social History Smoking Status: Never smoker Exposure to second hand smoke: No Alcohol: Rarely Drug Use: none - Physical Exam Vital Signs: Vital Signs - 24 hr Temp Pulse Resp BP Pulse Ox 09/14/21 12:00 97.7 F 59 L 19 123/65 97 09/14/21 08:00 96.3 F 64 17 95/54 97 09/14/21 03:45 97.7 F 65 19 99/54 99 09/13/21 23:48 97.7 F 62 18 107/60 99 09/13/21 20:56 96.6 F 65 16 107/56 99 09/13/21 19:31 65 16 103/71 100 09/13/21 18:38 63 16 110/72 98 09/13/21 18:02 100 09/13/21 17:17 97.3 F 63 18 104/67 100 General Appearance: no apparent distress, alert Neurologic Exam: alert, oriented x 3, cooperative, normal mood/affect, nml cerebellar function, nml station & gait, sensation nml, No motor deficits Eye Exam: PERRL/EOMI, eyes nml inspection Ears, Nose, Throat Exam: normal ENT inspection, TMs normal, pharynx normal, moist mucous membranes Neck Exam: normal inspection, non-tender, supple, full range of motion Respiratory Exam: normal breath sounds, lungs clear, No respiratory distress Cardiovascular Exam: regular rate/rhythm, normal heart sounds, normal peripheral pulses Gastrointestinal/Abdomen Exam: soft, normal bowel sounds, No tenderness, No mass Back Exam: normal inspection, normal range of motion, No CVA tenderness, No vertebral tenderness Extremity Exam: normal inspection, normal range of motion, pelvis stable Skin Exam: normal color, warm, dry, No rash Lymphatic Exam: No adenopathy Results - Labs Lab/Micro Results: Lab Results-Last 24 Hours 09/13/21 09/13/21 09/13/21 Range/Units 18:20 18:32 18:32 WBC 11.1 H (4.0-10.5) x10^3/uL RBC 4.41 (4.1-5.4) x10^6/uL Hgb 13.8 (12.0-16.0) g/dL Hct 42.4 (35-47) % MCV 96.1 (78-100) fL MCH 31.3 (26-32) pg MCHC 32.5 (32-36) g/dL RDW 13.5 (11.5-14.0) % Plt Count 270 (150-450) x10^3/uL MPV 9.0 (7.5-11.0) fL Gran % 73.7 H (36.0-66.0) % Immature Gran % (Auto) 0.2 (0.00-0.4) % Nucleat RBC Rel Count 0.0 (0.00-0.1) % Eos # (Auto) 0.28 (0-0.5) x10^3/uL Immature Gran # (Auto) 0.02 (0.00-0.03) x10^3u/L Absolute Lymphs (auto) 1.68 (1.0-4.6) x10^3/uL Absolute Monos (auto) 0.87 (0.0-1.3) x10^3/uL Absolute Nucleated RBC 0.00 (0.00-0.01) x10^3u/L Lymphocytes % 15.1 L (24.0-44.0) % Monocytes % 7.8 (0.0-12.0) % Eosinophils % 2.5 (0.00-5.0) % Basophils % 0.7 (0.0-0.4) % Absolute Granulocytes 8.17 H (1.4-6.9) x10^3/uL Basophils # 0.08 (0-0.4) x10^3/uL Sodium 140 (137-145) mmol/L Potassium 4.7 (3.5-5.1) mmol/L Chloride 103 (98-107) mmol/L Carbon Dioxide 29 (22-30) mmol/L Anion Gap 12.7 (5-15) MEQ/L BUN 12 (7-17) mg/dL Creatinine 0.66 (0.52-1.04) mg/dL Estimated GFR > 60.0 ML/MIN Glucose 91 (74-106) mg/dL Calcium 10.0 (8.4-10.2) mg/dL Total Bilirubin 1.60 H (0.2-1.3) mg/dL Direct Bilirubin (0.0-0.4) mg/dL AST 233 H (14-36) U/L ALT 458 H (0-35) U/L Alkaline Phosphatase 232 H (38-126) U/L Serum Total Protein 8.5 H (6.3-8.2) g/dL Albumin 4.4 (3.5-5.0) g/dL Amylase 71 (30-110) U/L Lipase 74 (23-300) U/L Serum , Qual (Negative) Urinalys Dipstick Clnc MAIN LAB Urine Color DARK YELLOW (YELLOW) Urine Appearance CLEAR (CLEAR) Urine pH 6.0 (5-6) Ur Specific [place] 1.025 (1.005-1.025) POC Urine Protein Conf NEGATIVE (Negative) Urine Ketones NEGATIVE (NEGATIVE) Urine Nitrite NEGATIVE (NEGATIVE) Urine Bilirubin NEGATIVE (NEGATIVE) Urine Urobilinogen 0.2 (0-1) mg/dL Urine Leukocytes NEGATIVE (NEGATIVE) Urine WBC (Auto) 0-2 (0-5) /HPF Urine RBC (Auto) NONE (0-2) /HPF U Hyaline Cast (Auto) 0-2 (0-2) /LPF U Epithel Cells (Auto) RARE (FEW) /HPF Urine Bacteria (Auto) NONE SEEN (NEGATIVE) /HPF Urine RBC NEGATIVE (0-5) Eric/ul Urine Mucus (Auto) SLIGHT (NEGATIVE) /HPF Ur Culture Indicated? NO Urine Glucose NEGATIVE (NEGATIVE) mg/dL Influenza Type A Ag (NEGATIVE) Influenza Type B Ag (NEGATIVE) RSV (PCR) (Negative) SARS-CoV-2 (PCR) (NEGATIVE) 09/13/21 09/13/21 09/14/21 Range/Units 18:32 18:33 09:30 WBC 6.7 (4.0-10.5) x10^3/uL RBC 4.00 L (4.1-5.4) x10^6/uL Hgb 12.7 (12.0-16.0) g/dL Hct 38.1 (35-47) % MCV 95.3 (78-100) fL MCH 31.8 (26-32) pg MCHC 33.3 (32-36) g/dL RDW 13.5 (11.5-14.0) % Plt Count 250 (150-450) x10^3/uL MPV 8.7 (7.5-11.0) fL Gran % 58.9 (36.0-66.0) % Immature Gran % (Auto) 0.3 (0.00-0.4) % Nucleat RBC Rel Count 0.0 (0.00-0.1) % Eos # (Auto) 0.25 (0-0.5) x10^3/uL Immature Gran # (Auto) 0.02 (0.00-0.03) x10^3u/L Absolute Lymphs (auto) 1.91 (1.0-4.6) x10^3/uL Absolute Monos (auto) 0.54 (0.0-1.3) x10^3/uL Absolute Nucleated RBC 0.00 (0.00-0.01) x10^3u/L Lymphocytes % 28.4 (24.0-44.0) % Monocytes % 8.0 (0.0-12.0) % Eosinophils % 3.7 (0.00-5.0) % Basophils % 0.7 (0.0-0.4) % Absolute Granulocytes 3.95 (1.4-6.9) x10^3/uL Basophils # 0.05 (0-0.4) x10^3/uL Sodium (137-145) mmol/L Potassium (3.5-5.1) mmol/L Chloride (98-107) mmol/L Carbon Dioxide (22-30) mmol/L Anion Gap (5-15) MEQ/L BUN (7-17) mg/dL Creatinine (0.52-1.04) mg/dL Estimated GFR ML/MIN Glucose (74-106) mg/dL Calcium (8.4-10.2) mg/dL Total Bilirubin (0.2-1.3) mg/dL Direct Bilirubin (0.0-0.4) mg/dL AST (14-36) U/L ALT (0-35) U/L Alkaline Phosphatase (38-126) U/L Serum Total Protein (6.3-8.2) g/dL Albumin (3.5-5.0) g/dL Amylase (30-110) U/L Lipase (23-300) U/L Serum , Qual NEGATIVE (Negative) Urinalys Dipstick Clnc Urine Color (YELLOW) Urine Appearance (CLEAR) Urine pH (5-6) Ur Specific [place] (1.005-1.025) POC Urine Protein Conf (Negative) Urine Ketones (NEGATIVE) Urine Nitrite (NEGATIVE) Urine Bilirubin (NEGATIVE) Urine Urobilinogen (0-1) mg/dL Urine Leukocytes (NEGATIVE) Urine WBC (Auto) (0-5) /HPF Urine RBC (Auto) (0-2) /HPF U Hyaline Cast (Auto) (0-2) /LPF U Epithel Cells (Auto) (FEW) /HPF Urine Bacteria (Auto) (NEGATIVE) /HPF Urine RBC (0-5) Eric/ul Urine Mucus (Auto) (NEGATIVE) /HPF Ur Culture Indicated? Urine Glucose (NEGATIVE) mg/dL Influenza Type A Ag NEGATIVE (NEGATIVE) Influenza Type B Ag NEGATIVE (NEGATIVE) RSV (PCR) NEGATIVE (Negative) SARS-CoV-2 (PCR) NEGATIVE (NEGATIVE) 09/14/21 09/14/21 Range/Units 09:30 09:30 WBC (4.0-10.5) x10^3/uL RBC (4.1-5.4) x10^6/uL Hgb (12.0-16.0) g/dL Hct (35-47) % MCV (78-100) fL MCH (26-32) pg MCHC (32-36) g/dL RDW (11.5-14.0) % Plt Count (150-450) x10^3/uL MPV (7.5-11.0) fL Gran % (36.0-66.0) % Immature Gran % (Auto) (0.00-0.4) % Nucleat RBC Rel Count (0.00-0.1) % Eos # (Auto) (0-0.5) x10^3/uL Immature Gran # (Auto) (0.00-0.03) x10^3u/L Absolute Lymphs (auto) (1.0-4.6) x10^3/uL Absolute Monos (auto) (0.0-1.3) x10^3/uL Absolute Nucleated RBC (0.00-0.01) x10^3u/L Lymphocytes % (24.0-44.0) % Monocytes % (0.0-12.0) % Eosinophils % (0.00-5.0) % Basophils % (0.0-0.4) % Absolute Granulocytes (1.4-6.9) x10^3/uL Basophils # (0-0.4) x10^3/uL Sodium 140 (137-145) mmol/L Potassium 3.9 (3.5-5.1) mmol/L Chloride 107 (98-107) mmol/L Carbon Dioxide 26 (22-30) mmol/L Anion Gap 11.2 (5-15) MEQ/L BUN 9 (7-17) mg/dL Creatinine 0.60 (0.52-1.04) mg/dL Estimated GFR > 60.0 ML/MIN Glucose 94 (74-106) mg/dL Calcium 9.0 (8.4-10.2) mg/dL Total Bilirubin 2.00 H 2.00 H (0.2-1.3) mg/dL Direct Bilirubin 0.1 (0.0-0.4) mg/dL AST 123 H 122 H (14-36) U/L ALT 331 H 329 H (0-35) U/L Alkaline Phosphatase 166 H 167 H (38-126) U/L Serum Total Protein 7.4 6.9 (6.3-8.2) g/dL Albumin 3.8 3.6 (3.5-5.0) g/dL Amylase 50 (30-110) U/L Lipase 59 (23-300) U/L Serum , Qual (Negative) Urinalys Dipstick Clnc Urine Color (YELLOW) Urine Appearance (CLEAR) Urine pH (5-6) Ur Specific [place] (1.005-1.025) POC Urine Protein Conf (Negative) Urine Ketones (NEGATIVE) Urine Nitrite (NEGATIVE) Urine Bilirubin (NEGATIVE) Urine Urobilinogen (0-1) mg/dL Urine Leukocytes (NEGATIVE) Urine WBC (Auto) (0-5) /HPF Urine RBC (Auto) (0-2) /HPF U Hyaline Cast (Auto) (0-2) /LPF U Epithel Cells (Auto) (FEW) /HPF Urine Bacteria (Auto) (NEGATIVE) /HPF Urine RBC (0-5) Eric/ul Urine Mucus (Auto) (NEGATIVE) /HPF Ur Culture Indicated? Urine Glucose (NEGATIVE) mg/dL Influenza Type A Ag (NEGATIVE) Influenza Type B Ag (NEGATIVE) RSV (PCR) (Negative) SARS-CoV-2 (PCR) (NEGATIVE) - Radiology Impressions Radiology Exams & Impressions: Radiology Procedures Category Date Time Status ABDOMINAL-LIMITED [US] Stat Exams 09/14/21 10:13 Completed MRI ABD W/O CONTRAST [MRI] Urgent Exams 09/14/21 12:10 Completed 0002 MRI/MRI ABD W/O CONTRAST Indication: Abdomen pain. Gallstones. Elevated liver enzymes. Conventional MRCP performed. Comparison: None Gallbladder is mildly distended with several small intraluminal stones, largest 1.2 cm. No pericholecystic fluid. Common bile duct measures 5.2 mm with 4 mm distal choledochal stone just proximal to the ampulla. No abnormal intra/extrahepatic biliary distention. Pancreatic duct not distended. Visualized liver, pancreas, spleen, adrenal glands, kidneys, aorta, and IVC are unremarkable. Visualized stomach and bowel loops appear nonobstructed. No free fluid. No abnormal bone marrow signal. Impression: Distended gallbladder with multiple small gallstones and 4 mm distal choledochal stone. Remaining MRCP is negative. - Other Procedures and Tests Respiratory Therapy 09/13/21 20:15 Incentive Spirometry UD Assessment/Plan (1) Cholecystitis with cholelithiasis Current Visit: Yes Status: Acute Qualifiers: Cholelithiasis location: gallbladder Cholecystitis acuity: chronic Biliary obstruction: without biliary obstruction Qualified Code(s): K80.10 - Calculus of gallbladder with chronic cholecystitis without obstruction (2) Biliary colic Current Visit: No Status: Acute Code(s): K80.50 - CALCULUS OF BILE DUCT W/O CHOLANGITIS OR CHOLECYST W/O [facility] Hospital Summary - Hospital Course Hospital Course: Chief Complaint Diagnosis gall bladder dysfunction, chronic cholecystitis Allergies Allergy/AdvReac Type Severity Reaction Status Date / Time No Known Drug Allergies Allergy Verified 09/13/21 17:12 Vital Signs (Last 24 hours) Temp Pulse Resp BP Pulse Ox 09/14/21 12:00 97.7 F 59 L 19 123/65 97 09/14/21 08:00 96.3 F 64 17 95/54 97 09/14/21 03:45 97.7 F 65 19 99/54 99 09/13/21 23:48 97.7 F 62 18 107/60 99 09/13/21 20:56 96.6 F 65 16 107/56 99 09/13/21 19:31 65 16 103/71 100 09/13/21 18:38 63 16 110/72 98 09/13/21 18:02 100 09/13/21 17:17 97.3 F 63 18 104/67 100 Home Medications Medication Instructions Recorded Confirmed Last Taken Type Hydrocodone/Acetaminophen 1 tab PO Q8H PRN 09/13/21 09/13/21 Unknown History [Hydrocodone-Acetamin 5-325 mg] Ondansetron [Ondansetron Odt ] 4 mg PO Q6H PRN 09/13/21 09/13/21 Unknown History Current Medications Generic Name Dose Route Start Last Admin Trade Name Freq PRN Reason Stop Dose Admin Acetaminophen 1,000 mg 09/13/21 19:45 09/14/21 09:22 Acetaminophen 500 Mg Tablet PO 10/13/21 19:44 1,000 mg Q4H PRN PRN Administration HEADACHE Hydrocodone Bitart/Acetaminophen 1 tab 09/14/21 11:27 Hydrocodone/Apap 5/325 Mg Tablet PO 09/19/21 11:26 Q8H/PRN PRN PAIN Sodium Chloride 1,000 mls @ 100 mls/hr 09/13/21 18:15 09/14/21 13:39 Sodium Chloride 0.9% 1000 Ml IV 10/13/21 18:14 100 mls/hr .Q10H DAVIN Administration Ondansetron HCl 4 mg 09/14/21 11:27 Zofran 4 Mg/Udtablet Orally Disintegrating PO 10/14/21 11:26 Q6H PRN PRN NAUSEA Intake & Output (Last 24 hours) 09/12/21 09/13/21 09/14/21 09/15/21 11:59 11:59 11:59 11:59 Intake Total 1191 0 Balance 1191 0 Weight 79.8 kg Laboratory Results (Last 24 hours) 09/14/21 09/14/21 09/14/21 09:30 09:30 09:30 WBC 6.7 RBC 4.00 L Hgb 12.7 Hct 38.1 MCV 95.3 MCH 31.8 MCHC 33.3 RDW 13.5 Plt Count 250 MPV 8.7 Gran % 58.9 Immature Gran % (Auto) 0.3 Nucleat RBC Rel Count 0.0 Eos # (Auto) 0.25 Immature Gran # (Auto) 0.02 Absolute Lymphs (auto) 1.91 Absolute Monos (auto) 0.54 Absolute Nucleated RBC 0.00 Lymphocytes % 28.4 Monocytes % 8.0 Eosinophils % 3.7 Basophils % 0.7 Absolute Granulocytes 3.95 Basophils # 0.05 Sodium 140 Potassium 3.9 Chloride 107 Carbon Dioxide 26 Anion Gap 11.2 BUN 9 Creatinine 0.60 Estimated GFR > 60.0 Glucose 94 Calcium 9.0 Total Bilirubin 2.00 H 2.00 H Direct Bilirubin 0.1 AST 122 H 123 H ALT 329 H 331 H Alkaline Phosphatase 167 H 166 H Serum Total Protein 6.9 7.4 Albumin 3.6 3.8 Amylase 50 Lipase 59 Serum , Qual Urinalys Dipstick Clnc Urine Color Urine Appearance Urine pH Ur Specific [place] POC Urine Protein Conf Urine Ketones Urine Nitrite Urine Bilirubin Urine Urobilinogen Urine Leukocytes Urine WBC (Auto) Urine RBC (Auto) U Hyaline Cast (Auto) U Epithel Cells (Auto) Urine Bacteria (Auto) Urine RBC Urine Mucus (Auto) Ur Culture Indicated? Urine Glucose Influenza Type A Ag Influenza Type B Ag RSV (PCR) SARS-CoV-2 (PCR) 09/13/21 09/13/21 09/13/21 18:33 18:32 18:32 WBC RBC Hgb Hct MCV MCH MCHC RDW Plt Count MPV Gran % Immature Gran % (Auto) Nucleat RBC Rel Count Eos # (Auto) Immature Gran # (Auto) Absolute Lymphs (auto) Absolute Monos (auto) Absolute Nucleated RBC Lymphocytes % Monocytes % Eosinophils % Basophils % Absolute Granulocytes Basophils # Sodium 140 Potassium 4.7 Chloride 103 Carbon Dioxide 29 Anion Gap 12.7 BUN 12 Creatinine 0.66 Estimated GFR > 60.0 Glucose 91 Calcium 10.0 Total Bilirubin 1.60 H Direct Bilirubin AST 233 H ALT 458 H Alkaline Phosphatase 232 H Serum Total Protein 8.5 H Albumin 4.4 Amylase 71 Lipase 74 Serum , Qual NEGATIVE Urinalys Dipstick Clnc Urine Color Urine Appearance Urine pH Ur Specific [place] POC Urine Protein Conf Urine Ketones Urine Nitrite Urine Bilirubin Urine Urobilinogen Urine Leukocytes Urine WBC (Auto) Urine RBC (Auto) U Hyaline Cast (Auto) U Epithel Cells (Auto) Urine Bacteria (Auto) Urine RBC Urine Mucus (Auto) Ur Culture Indicated? Urine Glucose Influenza Type A Ag NEGATIVE Influenza Type B Ag NEGATIVE RSV (PCR) NEGATIVE SARS-CoV-2 (PCR) NEGATIVE 09/13/21 09/13/21 18:32 18:20 WBC 11.1 H RBC 4.41 Hgb 13.8 Hct 42.4 MCV 96.1 MCH 31.3 MCHC 32.5 RDW 13.5 Plt Count 270 MPV 9.0 Gran % 73.7 H Immature Gran % (Auto) 0.2 Nucleat RBC Rel Count 0.0 Eos # (Auto) 0.28 Immature Gran # (Auto) 0.02 Absolute Lymphs (auto) 1.68 Absolute Monos (auto) 0.87 Absolute Nucleated RBC 0.00 Lymphocytes % 15.1 L Monocytes % 7.8 Eosinophils % 2.5 Basophils % 0.7 Absolute Granulocytes 8.17 H Basophils # 0.08 Sodium Potassium Chloride Carbon Dioxide Anion Gap BUN Creatinine Estimated GFR Glucose Calcium Total Bilirubin Direct Bilirubin AST ALT Alkaline Phosphatase Serum Total Protein Albumin Amylase Lipase Serum , Qual Urinalys Dipstick Clnc MAIN LAB Urine Color DARK YELLOW Urine Appearance CLEAR Urine pH 6.0 Ur Specific [place] 1.025 POC Urine Protein Conf NEGATIVE Urine Ketones NEGATIVE Urine Nitrite NEGATIVE Urine Bilirubin NEGATIVE Urine Urobilinogen 0.2 Urine Leukocytes NEGATIVE Urine WBC (Auto) 0-2 Urine RBC (Auto) NONE U Hyaline Cast (Auto) 0-2 U Epithel Cells (Auto) RARE Urine Bacteria (Auto) NONE SEEN Urine RBC NEGATIVE Urine Mucus (Auto) SLIGHT Ur Culture Indicated? NO Urine Glucose NEGATIVE Influenza Type A Ag Influenza Type B Ag RSV (PCR) SARS-CoV-2 (PCR) Orders (Last 24 hours) Category Date Time Status Code Status Order ROUTINE Care 09/13/21 19:32 Active IV Care Q6H Care 09/13/21 19:[address] in Observation ROUTINE Care 09/13/21 19:32 Active Consult Surgery ROUTINE Cons 09/13/21 19:32 Active Clear Liquid Diet 09/13/21 Dinner Completed NPO Diet 09/14/21 00:01 Active ABDOMINAL-LIMITED [US] Stat Exams 09/14/21 10:13 Completed MRI ABD W/O CONTRAST [MRI] Urgent Exams 09/14/21 12:10 Completed AMYLASE Stat Lab 09/13/21 18:32 Completed AMYLASE Stat Lab 09/14/21 09:30 Completed CBC W DIFF Stat Lab 09/13/21 18:32 Completed CBC W DIFF Stat Lab 09/14/21 09:30 Completed CMP Stat Lab 09/13/21 18:32 Completed CMP Stat Lab 09/14/21 09:30 Completed COVID/FLU/RSV Panel Stat Lab 09/13/21 18:33 Completed HCG QUALITATIVE,SERUM Stat Lab 09/13/21 18:32 Completed Hepatic Function Panel Stat Lab 09/14/21 09:30 Completed LIPASE Stat Lab 09/13/21 18:32 Completed LIPASE Stat Lab 09/14/21 09:30 Completed UA W/RFX CULTURE Stat Lab 09/13/21 18:20 Completed Acetaminophen 500 mg [Tylenol Extra Strength 500 mg* Med 09/13/21 19:45 Active ] 1,000 mg PO Q4H PRN PRN Hydrocodone/APAP 5/325 [[place] 5/325 mg] Med 09/14/21 11:27 Active 1 tab PO Q8H/PRN PRN NaCl 0.9% 1000 ml [Sodium Chloride 0.9% 1000 ML] 1,000 Med 09/13/21 18:15 Active ml IV 100 mls/hr Ondansetron ODT 4 MG [Zofran Odt 4 mg] Med 09/14/21 11:27 Active 4 mg PO Q6H PRN PRN Incentive Spirometry UD RT 09/13/21 20:15 Active Patient Care Notes (Last 24 hours) 09/14/21 12:14 Nursing Note by Nadiya Roblero Dr called with order for MRCP D/T lab results. Informed patient and she is tearful and upset. Dr Sahni will come between cases to speak with pt to explain and reassure. Initialized on 09/14/21 12:14 - END OF NOTE 09/14/21 11:00 Nursing Note by Nadiya Roblero Lab results and US abd results called and faxed to Dr Joseph Sahni office. Initialized on 09/14/21 11:00 - END OF NOTE 09/14/21 09:25 Nursing Note by Nadiya Roblero Dr called and requested update and lab/US results. New orders received. Patient aware of new orders Initialized on 09/14/21 09:25 - END OF NOTE 09/14/21 08:37 Nursing Note by Nadiya Roblero Called Dr Sahni office with request for OR consult. Spoke with Yin and gave info. She stated Dr Baron Sahni on and will let him know. States patient did not keep appt in office on 09/10/21/ Cont to keep pt NPO. Initialized on 09/14/21 08:37 - END OF NOTE 09/13/21 20:15 Respiratory Note by Nany Varner THE PT WAS INSTRUCTED ON AN INCENTIVE SPIROMETER AT THIS TIME. SHE VERBALIZED UNDERSTANDING OF THE DEVICE AND DEMONSTRATED PROPER USE. WE WILL FOLLOW-UP WITH THE PT AFTER SURGERY. Initialized on 09/13/21 20:15 - END OF NOTE - Vitals & Intake/Output Vital Signs: Vital Signs Temperature 97.7 F 09/14/21 12:00 Pulse Rate 59 L 09/14/21 12:00 Respiratory Rate 19 09/14/21 12:00 Blood Pressure 123/65 09/14/21 12:00 O2 Sat by Pulse Oximetry 97 09/14/21 12:00 Intake & Output: Intake & Output 09/12/21 09/13/21 09/14/21 09/15/21 11:59 11:59 11:59 11:59 Intake Total 1191 0 Balance 1191 0 Weight 79.8 kg - Lab Result Diagrams: 09/14/21 09:30 09/14/21 09:30 Lab Results-Last 24 Hrs: Lab Results-Last 24 Hours 09/13/21 09/13/21 09/13/21 Range/Units 18:20 18:32 18:32 WBC 11.1 H (4.0-10.5) x10^3/uL RBC 4.41 (4.1-5.4) x10^6/uL Hgb 13.8 (12.0-16.0) g/dL Hct 42.4 (35-47) % MCV 96.1 (78-100) fL MCH 31.3 (26-32) pg MCHC 32.5 (32-36) g/dL RDW 13.5 (11.5-14.0) % Plt Count 270 (150-450) x10^3/uL MPV 9.0 (7.5-11.0) fL Gran % 73.7 H (36.0-66.0) % Immature Gran % (Auto) 0.2 (0.00-0.4) % Nucleat RBC Rel Count 0.0 (0.00-0.1) % Eos # (Auto) 0.28 (0-0.5) x10^3/uL Immature Gran # (Auto) 0.02 (0.00-0.03) x10^3u/L Absolute Lymphs (auto) 1.68 (1.0-4.6) x10^3/uL Absolute Monos (auto) 0.87 (0.0-1.3) x10^3/uL Absolute Nucleated RBC 0.00 (0.00-0.01) x10^3u/L Lymphocytes % 15.1 L (24.0-44.0) % Monocytes % 7.8 (0.0-12.0) % Eosinophils % 2.5 (0.00-5.0) % Basophils % 0.7 (0.0-0.4) % Absolute Granulocytes 8.17 H (1.4-6.9) x10^3/uL Basophils # 0.08 (0-0.4) x10^3/uL Sodium 140 (137-145) mmol/L Potassium 4.7 (3.5-5.1) mmol/L Chloride 103 (98-107) mmol/L Carbon Dioxide 29 (22-30) mmol/L Anion Gap 12.7 (5-15) MEQ/L BUN 12 (7-17) mg/dL Creatinine 0.66 (0.52-1.04) mg/dL Estimated GFR > 60.0 ML/MIN Glucose 91 (74-106) mg/dL Calcium 10.0 (8.4-10.2) mg/dL Total Bilirubin 1.60 H (0.2-1.3) mg/dL Direct Bilirubin (0.0-0.4) mg/dL AST 233 H (14-36) U/L ALT 458 H (0-35) U/L Alkaline Phosphatase 232 H (38-126) U/L Serum Total Protein 8.5 H (6.3-8.2) g/dL Albumin 4.4 (3.5-5.0) g/dL Amylase 71 (30-110) U/L Lipase 74 (23-300) U/L Serum , Qual (Negative) Urinalys Dipstick Clnc MAIN LAB Urine Color DARK YELLOW (YELLOW) Urine Appearance CLEAR (CLEAR) Urine pH 6.0 (5-6) Ur Specific [place] 1.025 (1.005-1.025) POC Urine Protein Conf NEGATIVE (Negative) Urine Ketones NEGATIVE (NEGATIVE) Urine Nitrite NEGATIVE (NEGATIVE) Urine Bilirubin NEGATIVE (NEGATIVE) Urine Urobilinogen 0.2 (0-1) mg/dL Urine Leukocytes NEGATIVE (NEGATIVE) Urine WBC (Auto) 0-2 (0-5) /HPF Urine RBC (Auto) NONE (0-2) /HPF U Hyaline Cast (Auto) 0-2 (0-2) /LPF U Epithel Cells (Auto) RARE (FEW) /HPF Urine Bacteria (Auto) NONE SEEN (NEGATIVE) /HPF Urine RBC NEGATIVE (0-5) Eric/ul Urine Mucus (Auto) SLIGHT (NEGATIVE) /HPF Ur Culture Indicated? NO Urine Glucose NEGATIVE (NEGATIVE) mg/dL Influenza Type A Ag (NEGATIVE) Influenza Type B Ag (NEGATIVE) RSV (PCR) (Negative) SARS-CoV-2 (PCR) (NEGATIVE) 09/13/21 09/13/21 09/14/21 Range/Units 18:32 18:33 09:30 WBC 6.7 (4.0-10.5) x10^3/uL RBC 4.00 L (4.1-5.4) x10^6/uL Hgb 12.7 (12.0-16.0) g/dL Hct 38.1 (35-47) % MCV 95.3 (78-100) fL MCH 31.8 (26-32) pg MCHC 33.3 (32-36) g/dL RDW 13.5 (11.5-14.0) % Plt Count 250 (150-450) x10^3/uL MPV 8.7 (7.5-11.0) fL Gran % 58.9 (36.0-66.0) % Immature Gran % (Auto) 0.3 (0.00-0.4) % Nucleat RBC Rel Count 0.0 (0.00-0.1) % Eos # (Auto) 0.25 (0-0.5) x10^3/uL Immature Gran # (Auto) 0.02 (0.00-0.03) x10^3u/L Absolute Lymphs (auto) 1.91 (1.0-4.6) x10^3/uL Absolute Monos (auto) 0.54 (0.0-1.3) x10^3/uL Absolute Nucleated RBC 0.00 (0.00-0.01) x10^3u/L Lymphocytes % 28.4 (24.0-44.0) % Monocytes % 8.0 (0.0-12.0) % Eosinophils % 3.7 (0.00-5.0) % Basophils % 0.7 (0.0-0.4) % Absolute Granulocytes 3.95 (1.4-6.9) x10^3/uL Basophils # 0.05 (0-0.4) x10^3/uL Sodium (137-145) mmol/L Potassium (3.5-5.1) mmol/L Chloride (98-107) mmol/L Carbon Dioxide (22-30) mmol/L Anion Gap (5-15) MEQ/L BUN (7-17) mg/dL Creatinine (0.52-1.04) mg/dL Estimated GFR ML/MIN Glucose (74-106) mg/dL Calcium (8.4-10.2) mg/dL Total Bilirubin (0.2-1.3) mg/dL Direct Bilirubin (0.0-0.4) mg/dL AST (14-36) U/L ALT (0-35) U/L Alkaline Phosphatase (38-126) U/L Serum Total Protein (6.3-8.2) g/dL Albumin (3.5-5.0) g/dL Amylase (30-110) U/L Lipase (23-300) U/L Serum , Qual NEGATIVE (Negative) Urinalys Dipstick Clnc Urine Color (YELLOW) Urine Appearance (CLEAR) Urine pH (5-6) Ur Specific [place] (1.005-1.025) POC Urine Protein Conf (Negative) Urine Ketones (NEGATIVE) Urine Nitrite (NEGATIVE) Urine Bilirubin (NEGATIVE) Urine Urobilinogen (0-1) mg/dL Urine Leukocytes (NEGATIVE) Urine WBC (Auto) (0-5) /HPF Urine RBC (Auto) (0-2) /HPF U Hyaline Cast (Auto) (0-2) /LPF U Epithel Cells (Auto) (FEW) /HPF Urine Bacteria (Auto) (NEGATIVE) /HPF Urine RBC (0-5) Eric/ul Urine Mucus (Auto) (NEGATIVE) /HPF Ur Culture Indicated? Urine Glucose (NEGATIVE) mg/dL Influenza Type A Ag NEGATIVE (NEGATIVE) Influenza Type B Ag NEGATIVE (NEGATIVE) RSV (PCR) NEGATIVE (Negative) SARS-CoV-2 (PCR) NEGATIVE (NEGATIVE) 09/14/21 09/14/21 Range/Units 09:30 09:30 WBC (4.0-10.5) x10^3/uL RBC (4.1-5.4) x10^6/uL Hgb (12.0-16.0) g/dL Hct (35-47) % MCV (78-100) fL MCH (26-32) pg MCHC (32-36) g/dL RDW (11.5-14.0) % Plt Count (150-450) x10^3/uL MPV (7.5-11.0) fL Gran % (36.0-66.0) % Immature Gran % (Auto) (0.00-0.4) % Nucleat RBC Rel Count (0.00-0.1) % Eos # (Auto) (0-0.5) x10^3/uL Immature Gran # (Auto) (0.00-0.03) x10^3u/L Absolute Lymphs (auto) (1.0-4.6) x10^3/uL Absolute Monos (auto) (0.0-1.3) x10^3/uL Absolute Nucleated RBC (0.00-0.01) x10^3u/L Lymphocytes % (24.0-44.0) % Monocytes % (0.0-12.0) % Eosinophils % (0.00-5.0) % Basophils % (0.0-0.4) % Absolute Granulocytes (1.4-6.9) x10^3/uL Basophils # (0-0.4) x10^3/uL Sodium 140 (137-145) mmol/L Potassium 3.9 (3.5-5.1) mmol/L Chloride 107 (98-107) mmol/L Carbon Dioxide 26 (22-30) mmol/L Anion Gap 11.2 (5-15) MEQ/L BUN 9 (7-17) mg/dL Creatinine 0.60 (0.52-1.04) mg/dL Estimated GFR > 60.0 ML/MIN Glucose 94 (74-106) mg/dL Calcium 9.0 (8.4-10.2) mg/dL Total Bilirubin 2.00 H 2.00 H (0.2-1.3) mg/dL Direct Bilirubin 0.1 (0.0-0.4) mg/dL AST 123 H 122 H (14-36) U/L ALT 331 H 329 H (0-35) U/L Alkaline Phosphatase 166 H 167 H (38-126) U/L Serum Total Protein 7.4 6.9 (6.3-8.2) g/dL Albumin 3.8 3.6 (3.5-5.0) g/dL Amylase 50 (30-110) U/L Lipase 59 (23-300) U/L Serum , Qual (Negative) Urinalys Dipstick Clnc Urine Color (YELLOW) Urine Appearance (CLEAR) Urine pH (5-6) Ur Specific [place] (1.005-1.025) POC Urine Protein Conf (Negative) Urine Ketones (NEGATIVE) Urine Nitrite (NEGATIVE) Urine Bilirubin (NEGATIVE) Urine Urobilinogen (0-1) mg/dL Urine Leukocytes (NEGATIVE) Urine WBC (Auto) (0-5) /HPF Urine RBC (Auto) (0-2) /HPF U Hyaline Cast (Auto) (0-2) /LPF U Epithel Cells (Auto) (FEW) /HPF Urine Bacteria (Auto) (NEGATIVE) /HPF Urine RBC (0-5) Eric/ul Urine Mucus (Auto) (NEGATIVE) /HPF Ur Culture Indicated? Urine Glucose (NEGATIVE) mg/dL Influenza Type A Ag (NEGATIVE) Influenza Type B Ag (NEGATIVE) RSV (PCR) (Negative) SARS-CoV-2 (PCR) (NEGATIVE) - Radiology Exams Ordered Rad Exams-Entire Visit: Radiology Procedures Category Date Time Status ABDOMINAL-LIMITED [US] Stat Exams 09/14/21 10:13 Completed MRI ABD W/O CONTRAST [MRI] Urgent Exams 09/14/21 12:10 Completed - Procedures and Test Procedures and Tests throughout Hospitalization: Therapy Orders & Screens 09/13/21 20:15 Incentive Spirometry UD Comment: Diagnosis: gall bladder dysfunction, chronic cholecystitis - Discharge Discharge Date: 09/14/21 Disposition: DC TO [facility] Condition: Stable Prescriptions: No Action Ondansetron [Ondansetron Odt ] 4 mg PO Q6H PRN PRN Reason: Nausea Hydrocodone/Acetaminophen [Hydrocodone-Acetamin 5-325 mg] 1 tab PO Q8H PRN PRN Reason: Pain Follow up with: SHERIE FORD, [employer] ATTENDANT [Primary Care Provider] - AMANDA SAHNI [Family Provider] -
[2021-09-14 19:18] VITALS: BP 96/53; PULSE 60; O2SAT 99
--- NOTE | 2021-09-15 08:02 | CONS ---
DATE OF CONSULT: 09/14/2021 HISTORY: This is a patient who presents with chronic cholecystitis and cholelithiasis as well as possible acute cholecystitis and we have been consulted evaluation. I personally reviewed the patient's studies with her nurse. She was also seen recently by our group at [facility] so we are familiar with her case. She was going to follow up with Dr. Rudolph Parrish as an outpatient which she did and she was getting on the schedule to have her gallbladder removed. However, prior to having her surgery she had another episode of pain. She ended up in the emergency room last night because of this and when she was admitted through the emergency room she was found to have a mildly elevated bilirubin of 1.6. Due to the elevated bilirubin, we obtained another set of labs today and her bilirubin has increased to 2. She also has had elevated liver function tests as well. We did an ultrasound and then ordered MRCP after the ultrasound and labs were both reviewed. The MRCP has come back with choledocholithiasis. Currently, the patient is having less pain. She is very comfortable in bed. She is hungry. She has no jaundice. She has no nausea, no vomiting, no chest pain, no fever, no shortness of breath, no cough. PAST MEDICAL HISTORY: None. PAST SURGICAL HISTORY: None. MEDICATIONS: Reviewed and in the medication reconciliation. ALLERGIES: NKDA. SOCIAL HISTORY: Occasional tobacco. Occasional alcohol. FAMILY HISTORY: Mother had gallbladder disease. No bleeding or anesthesia problems known. PHYSICAL EXAMINATION: GENERAL: No acute distress. HEENT: Eyes - No jaundice. CVS: Regular rate and rhythm. PULMONARY: Nonlabored respirations. ABDOMEN: Soft, very minimally tender to palpation right upper quadrant. No rebound, no guarding. EXTREMITIES: Normal. LAB DATA AND TESTS: Labs and imaging are as described above. The remainder of her laboratory studies were essentially within normal other than her bilirubin and liver function tests. ASSESSMENT/PLAN: Continue IV fluids and NPO. I personally called Dr. Yosef Cisneros at [facility]. He has agreed to consult for ERCP. We will be transferring her to our service at [facility]. I have discussed this with my partner, Dr. Rudolph Parrish, recreational therapist and he will be accepting her. Dr. Cisneros will be in consultation. Tentative plans for ERCP and then she will likely be getting her cholecystectomy that same admission with our group. All of this was discussed personally with the patient. She understands and agrees. She wants to proceed with this plan.
== END 2021-09-14 19:25 | disposition home or self-care (01) ==
LOC: ED 16:37 → MED SURG 19:27
PROVIDERS: ADMIT General Practice; ATTEND General Practice
DX: K80.10 Calculus of gallbladder with chronic cholecystitis without obstruction (principal); K80.50 Calculus of bile duct without cholangitis or cholecystitis without obstruction; Z20.828 Contact with and (suspected) exposure to other viral communicable diseases
CPT/HCPCS: 0241U; 36415; 74181; 76705; 80053; 80076; 81015; 82150; 83690; 84703; 85025; 99284; G0378; A9270-GY

== ENCOUNTER 2022-09-08 05:53 | Day surgery (SDC) | payer OTHER ==
[2022-09-08] MEDS ORDERED: Lactated Ringers 1,000 ML IV SCH (06:30)
[2022-09-08 06:43] LABS: HCG URINE TEST NEGATIVE (NEGATIVE)
[2022-09-08] MEDS ORDERED: Versed 2 MG/2 ML Injection ONE (07:58)
[2022-09-08] MEDS ORDERED: DIPRIVAN 200 MG/20 ML IV ONE ×2 (07:58→08:24)
[2022-09-08 08:50] VITALS: O2SAT 98
[2022-09-08 09:02] VITALS: BP 121/80; PULSE 72
--- NOTE | 2022-09-08 10:00 | OP ---
SURGERY DATE/TIME: 09/08/2022 0812 PREOPERATIVE DIAGNOSES: 1) Hematemesis. 2) Abdominal bloating. POSTOPERATIVE DIAGNOSES: 1) Small hiatal hernia. 2) Mild gastritis. PROCEDURE: EGD. SURGEON: Mason Corrigan M.D. ANESTHESIA: MAC by Richard Rodríguez CRNA. ESTIMATED BLOOD LOSS: Minimal. SPECIMENS: Two cold forceps biopsies from the gastric antrum sent for Helicobacter pylori testing. DESCRIPTION OF PROCEDURE: After informed written consent was obtained, the patient was taken to the endoscopy suite. She was placed in left lateral decubitus position and a bite block inserted. Anesthesia was titrated to the desired level of consciousness and the endoscope was inserted into the posterior oropharynx. Under direct visualization the esophagus was easily traversed. Upon entering the gastric cavity, there is a small hiatal hernia present. No other mucosal abnormalities were evident until the gastric antrum was reached. There were no areas of active bleeding or ulceration but there were mild gastritis-type changes of streaking in the gastric antrum. The pylorus was traversed. The first and second portions of the duodenum had a normal mucosal appearance. Two cold forceps biopsies were taken in the gastric antrum with minimal blood loss and sent for Helicobacter pylori testing. Retroflexion revealed a small hiatal hernia but no other abnormalities in the upper portion of the stomach. Upon withdrawal the gastroesophageal junction had a crisp Z-line with no obvious mucosal abnormalities in the esophagus on withdrawal of the scope. The scope was removed. The patient was transferred to the recovery room in good condition. She is advised to continue her proton pump inhibitor at this time and follow up in one week for pathology results.
== END 2022-09-08 09:16 | disposition home or self-care (01) ==
LOC: SDC 05:53
PROVIDERS: ATTEND Family Medicine
DX: K29.70 Gastritis, unspecified, without bleeding (principal); K92.0 Hematemesis; K44.9 Diaphragmatic hernia without obstruction or gangrene; R14.0 Abdominal distension (gaseous)
CPT/HCPCS: 81025; J2250; J2704

== ENCOUNTER 2023-06-05 05:26 | Emergency (ER) | payer OTHER ==
[2023-06-05 05:55] VITALS: TEMP 97.2
--- NOTE | 2023-06-05 06:08 | ERPHSYRPT ---
- History of Present Illness Source: patient Exam Limitations: no limitations Patient Subjective Stated Complaint: pt states "I am having pain in between my shoulder blades like I did before I got my gallbladder out." Triage Nursing Assessment: pt ambulatory to bed by self, pt alert and oriented x3, skin pwd, pt c/o pain in between shoulder blades, pt states that this is the same pain when she was having gallbladder issues, pt had gallbladder removed about 2 years ago, pt states this pain has never really gone away completely after the gallbladder removal but pain got worse around 0300, bowel sounds active in all 4 quads Hx Tetanus, Diphtheria Vaccination/Date Given: No Hx Influenza Vaccination/Date Given: No Hx Pneumococcal Vaccination/Date Given: No <KANDY CHRISTIANSEN - Last Filed: 06/05/23 06:30> <ADEN GUTIERREZ - Last Filed: 06/05/23 08:23> - History of Present Illness Time Seen by Provider: 06/05/23 05:53 Physician History: Pt states for the past 2 weeks she has had intermittent sharp pain to the left of her right shoulder blade with episodes lasting up to 1 hour in duration; pain is worse in the past 2 hours up to 10/10 in severity. Pt states she vomited once today. Pt states she has had diarrhea or soft stools since Dr. Russell Parrish removed her gallbladder 20 months ago. (KANDY CHRISTIANSEN) Allergies/Adverse Reactions: No Known Drug Allergies Allergy (Verified 06/05/23 05:38) Home Medications: Progesterone, Micronized [Progesterone] 100 mg PO HS 06/05/23 [History] estradioL [Lyllana] 1 patch TOP UD 06/05/23 [History] Travel Risk - International Travel Have you traveled outside of the country in past 3 weeks: No - Emerging Infectious Disease Are you exhibiting symptoms associated with any current EIDs: No <KANDY CHRISTIANSEN - Last Filed: 06/05/23 06:30> - Review of Systems Constitutional: No Fever, No Chills Abdominal/Gastrointestinal: Vomiting, Diarrhea Genitourinary Symptoms: No Dysuria Neurological: No Headache <KANDY CHRISTIANSEN - Last Filed: 06/05/23 06:30> - Past Medical History Pertinent Past Medical History: Yes Neurological History: No Pertinent History ENT History: No Pertinent History Cardiac History: No Pertinent History Respiratory History: No Pertinent History Endocrine Medical History: No Pertinent History Musculoskeletal History: No Pertinent History GI Medical History: Gallbladder Disease History: No Pertinent History Psycho-Social History: No Pertinent History Female Reproductive Disorders: No Pertinent History - Past Surgical History Past Surgical History: Yes Neuro Surgical History: No Pertinent History Cardiac: No Pertinent History Respiratory: No Pertinent History Gastrointestinal: Cholecystectomy Genitourinary: No Pertinent History Musculoskeletal: No Pertinent History Female Surgical History: No Pertinent History Other Surgical History: ERCP - Female History Hx Last Menstrual Period: 05/22/23 Hx Now: No - Social History Smoking Status: Former smoker How long have you smoked: "long time Exposure to second hand smoke: No Drug Use: none Patient Lives Alone: No <KANDY CHRISTIANSEN - Last Filed: 06/05/23 06:30> - Physical Exam General Appearance: alert Eye Exam: PERRL/EOMI Ears, Nose, Throat Exam: TM abnormal (L) (erythematous), pharyngeal erythema Neck Exam: normal inspection Respiratory Exam: lungs clear Cardiovascular Exam: normal heart sounds Gastrointestinal Exam: soft, normal bowel sounds Back Exam: normal inspection, No point tenderness Extremity Exam: No pedal edema Neurologic Exam: alert, cooperative Skin Exam: warm, dry SpO2 Interpretation: normal SpO2: 99 O2 Delivery: Room Air <KANDY CHRISTIANSEN - Last Filed: 06/05/23 06:30> - Nursing Vital Signs Nursing Vital Signs: Initial Vital Signs Temperature 97.2 F 06/05/23 05:39 Pulse Rate 61 06/05/23 05:39 Respiratory Rate 18 06/05/23 05:39 Blood Pressure 127/76 06/05/23 05:39 O2 Sat by Pulse Oximetry 99 06/05/23 05:39 Pain Scale Pain Intensity [Shoulder] 10 Pain Intensity 1 - Course Nursing assessment & vital signs reviewed: Yes EKG Interpreted by Me: RATE (61), Sinus Rhythm, NORMAL AXIS, Other (QTc = 416) <KANDY CHRISTIANSEN - Filed: 06/05/23 06:30> Ordered Tests: Active Orders 24 hr Category Date Time Status EKG-ER Only STAT Care 06/05/23 06:29 Active IV Insertion STAT Care 06/05/23 06:13 Active ABDOMEN AND PELVIS W CONTRAST [CT] Stat Exams 06/05/23 06:13 Completed CHEST WITH CONTRAST [CT] Stat Exams 06/05/23 06:12 Completed AMYLASE Stat Lab 06/05/23 06:25 Completed CBC W DIFF Stat Lab 06/05/23 06:25 Completed CMP Stat Lab 06/05/23 06:25 Completed HCG QUALITATIVE, SERUM Stat Lab 06/05/23 06:25 Completed LIPASE Stat Lab 06/05/23 06:25 Completed MONO SCREEN Stat Lab 06/05/23 06:25 Completed TROPONIN Q4H Lab 06/05/23 06:28 Completed TROPONIN Q4H Lab 06/05/23 10:30 Ordered TROPONIN Q4H Lab 06/05/23 14:30 Ordered UA W/RFX UR CULTURE Stat Lab 06/05/23 06:26 Completed Medication Summary Discontinued Medications Generic Name Dose Route Start Last Admin Trade Name Freq PRN Reason Stop Dose Admin Hydromorphone HCl 1 mg 06/05/23 06:13 06/05/23 06:29 Hydromorphone 1 Mg/1ml Inj IV 06/05/23 06:14 1 mg STAT ONE Administration Hydromorphone HCl Confirm 06/05/23 06:27 Hydromorphone 1 Mg/1ml Inj Administered 06/05/23 06:28 Dose 1 mg .ROUTE .STK-MED ONE Sodium Chloride 1,000 mls @ 999 mls/hr 06/05/23 06:13 06/05/23 07:32 Sodium Chloride 0.9% 1000 Ml IV 06/05/23 07:13 Infused .Q1H1M STA Infusion Sodium Chloride Confirm 06/05/23 06:28 Sodium Chloride 0.9% 1000 Ml Administered 06/05/23 06:29 Dose 1,000 mls @ ud .ROUTE .STK-MED ONE Ondansetron HCl 4 mg 06/05/23 06:13 06/05/23 06:29 Ondansetron Hcl 4 Mg/2 Ml Vial IV 06/05/23 06:14 4 mg STAT ONE Administration Ondansetron HCl Confirm 06/05/23 06:27 Ondansetron Hcl 4 Mg/2 Ml Vial Administered 06/05/23 06:28 Dose 4 mg .ROUTE .STK-MED ONE Lab/Rad Data: Laboratory Result Diagrams 06/05/23 06:25 06/05/23 06:25 Laboratory Results 06/05/23 06/05/23 06/05/23 Range/Units 06:28 06:26 06:25 WBC (4.0-10.5) x10^3/uL RBC (4.1-5.4) x10^6/uL Hgb (12.0-16.0) g/dL Hct (35-47) % MCV (78-100) fL MCH (26-32) pg MCHC (32-36) g/dL RDW (11.5-14.0) % Plt Count (150-450) x10^3/uL MPV (7.5-11.0) fL Gran % (36.0-66.0) % Immature Gran % (Auto) (0.00-0.4) % Nucleat RBC Rel Count (0.00-0.1) % Eos # (Auto) (0-0.5) x10^3/uL Immature Gran # (Auto) (0.00-0.03) x10^3u/L Absolute Lymphs (auto) (1.0-4.6) x10^3/uL Absolute Monos (auto) (0.0-1.3) x10^3/uL Absolute Nucleated RBC (0.00-0.01) x10^3u/L Lymphocytes % (24.0-44.0) % Monocytes % (0.0-12.0) % Eosinophils % (0.00-5.0) % Basophils % (0.0-0.4) % Absolute Granulocytes (1.4-6.9) x10^3/uL Basophils # (0-0.4) x10^3/uL Sodium (135-145) mmol/L Potassium (3.5-5.1) mmol/L Chloride (98-107) mmol/L Carbon Dioxide (22-30) mmol/L Anion Gap (5-15) MEQ/L BUN (7-17) mg/dL Creatinine (0.52-1.04) mg/dL Estimated GFR ML/MIN Glucose (74-106) mg/dL Calcium (8.4-10.2) mg/dL Total Bilirubin (0.2-1.3) mg/dL AST (14-36) U/L ALT (0-35) U/L Alkaline Phosphatase (38-126) U/L Troponin I < 0.012 (0.000-0.034) ng/mL Serum Total Protein (6.3-8.2) g/dL Albumin (3.5-5.0) g/dL Amylase (30-110) U/L Lipase (23-300) U/L Serum HCG, Qual (NEGATIVE) Urine Color Yellow (Yellow) Urine Appearance Clear (Clear) Urine pH 5.5 (4.6-8.0) Ur Specific [place] 1.025 (1.005-1.030) Urine Protein Negative (Negative) Urine Glucose (UA) Negative (Negative) mg/dL Urine Ketones Negative (Negative) Urine Blood Negative (Negative) Urine Nitrite Negative (Negative) Urine Bilirubin Negative (Negative) Urine Urobilinogen 0.2 (0.2) mg/dL Ur Leukocyte Esterase Trace A (Negative) U Hyaline Cast (Auto) NONE SEEN (0-2) /LPF Urine Microscopic RBC 0-2 (0-5) /HPF Urine Microscopic WBC 6-10 A (0-5) /HPF Ur Epithelial Cells None Seen (None Seen) /HPF Urine Bacteria None Seen (None Seen) /HPF Urine Culture Reflexed NO (NO) Monoscreen (NEGATIVE) Influenza Type A Ag NEGATIVE (NEGATIVE) Influenza Type B Ag NEGATIVE (NEGATIVE) RSV (PCR) NEGATIVE (NEGATIVE) SARS-CoV-2 (PCR) NEGATIVE (NEGATIVE) Group A Strep Antibody (NEGATIVE) 06/05/23 06/05/23 06/05/23 Range/Units 06:25 06:25 06:25 WBC (4.0-10.5) x10^3/uL RBC (4.1-5.4) x10^6/uL Hgb (12.0-16.0) g/dL Hct (35-47) % MCV (78-100) fL MCH (26-32) pg MCHC (32-36) g/dL RDW (11.5-14.0) % Plt Count (150-450) x10^3/uL MPV (7.5-11.0) fL Gran % (36.0-66.0) % Immature Gran % (Auto) (0.00-0.4) % Nucleat RBC Rel Count (0.00-0.1) % Eos # (Auto) (0-0.5) x10^3/uL Immature Gran # (Auto) (0.00-0.03) x10^3u/L Absolute Lymphs (auto) (1.0-4.6) x10^3/uL Absolute Monos (auto) (0.0-1.3) x10^3/uL Absolute Nucleated RBC (0.00-0.01) x10^3u/L Lymphocytes % (24.0-44.0) % Monocytes % (0.0-12.0) % Eosinophils % (0.00-5.0) % Basophils % (0.0-0.4) % Absolute Granulocytes (1.4-6.9) x10^3/uL Basophils # (0-0.4) x10^3/uL Sodium 140 (135-145) mmol/L Potassium 3.7 (3.5-5.1) mmol/L Chloride 105 (98-107) mmol/L Carbon Dioxide 25 (22-30) mmol/L Anion Gap 13.8 (5-15) MEQ/L BUN 15 (7-17) mg/dL Creatinine 0.69 (0.52-1.04) mg/dL Estimated GFR 111.1 ML/MIN Glucose 101 (74-106) mg/dL Calcium 9.2 (8.4-10.2) mg/dL Total Bilirubin 1.70 H (0.2-1.3) mg/dL AST 18 (14-36) U/L ALT 13 (0-35) U/L Alkaline Phosphatase 64 (38-126) U/L Troponin I (0.000-0.034) ng/mL Serum Total Protein 8.1 (6.3-8.2) g/dL Albumin 4.2 (3.5-5.0) g/dL Amylase 64 (30-110) U/L Lipase 89 (23-300) U/L Serum HCG, Qual NEGATIVE (NEGATIVE) Urine Color (Yellow) Urine Appearance (Clear) Urine pH (4.6-8.0) Ur Specific [place] (1.005-1.030) Urine Protein (Negative) Urine Glucose (UA) (Negative) mg/dL Urine Ketones (Negative) Urine Blood (Negative) Urine Nitrite (Negative) Urine Bilirubin (Negative) Urine Urobilinogen (0.2) mg/dL Ur Leukocyte Esterase (Negative) U Hyaline Cast (Auto) (0-2) /LPF Urine Microscopic RBC (0-5) /HPF Urine Microscopic WBC (0-5) /HPF Ur Epithelial Cells (None Seen) /HPF Urine Bacteria (None Seen) /HPF Urine Culture Reflexed (NO) Monoscreen POSITIVE A (NEGATIVE) Influenza Type A Ag (NEGATIVE) Influenza Type B Ag (NEGATIVE) RSV (PCR) (NEGATIVE) SARS-CoV-2 (PCR) (NEGATIVE) Group A Strep Antibody NOT DETECTED (NEGATIVE) 06/05/23 Range/Units 06:25 WBC 10.4 (4.0-10.5) x10^3/uL RBC 4.45 (4.1-5.4) x10^6/uL Hgb 13.6 (12.0-16.0) g/dL Hct 42.0 (35-47) % MCV 94.4 (78-100) fL MCH 30.6 (26-32) pg MCHC 32.4 (32-36) g/dL RDW 13.3 (11.5-14.0) % Plt Count 275 (150-450) x10^3/uL MPV 8.7 (7.5-11.0) fL Gran % 57.3 (36.0-66.0) % Immature Gran % (Auto) 0.5 H (0.00-0.4) % Nucleat RBC Rel Count 0.0 (0.00-0.1) % Eos # (Auto) 0.23 (0-0.5) x10^3/uL Immature Gran # (Auto) 0.05 H (0.00-0.03) x10^3u/L Absolute Lymphs (auto) 3.36 (1.0-4.6) x10^3/uL Absolute Monos (auto) 0.75 (0.0-1.3) x10^3/uL Absolute Nucleated RBC 0.00 (0.00-0.01) x10^3u/L Lymphocytes % 32.3 (24.0-44.0) % Monocytes % 7.2 (0.0-12.0) % Eosinophils % 2.2 (0.00-5.0) % Basophils % 0.5 (0.0-0.4) % Absolute Granulocytes 5.97 (1.4-6.9) x10^3/uL Basophils # 0.05 (0-0.4) x10^3/uL Sodium (135-145) mmol/L Potassium (3.5-5.1) mmol/L Chloride (98-107) mmol/L Carbon Dioxide (22-30) mmol/L Anion Gap (5-15) MEQ/L BUN (7-17) mg/dL Creatinine (0.52-1.04) mg/dL Estimated GFR ML/MIN Glucose (74-106) mg/dL Calcium (8.4-10.2) mg/dL Total Bilirubin (0.2-1.3) mg/dL AST (14-36) U/L ALT (0-35) U/L Alkaline Phosphatase (38-126) U/L Troponin I (0.000-0.034) ng/mL Serum Total Protein (6.3-8.2) g/dL Albumin (3.5-5.0) g/dL Amylase (30-110) U/L Lipase (23-300) U/L Serum HCG, Qual (NEGATIVE) Urine Color (Yellow) Urine Appearance (Clear) Urine pH (4.6-8.0) Ur Specific [place] (1.005-1.030) Urine Protein (Negative) Urine Glucose (UA) (Negative) mg/dL Urine Ketones (Negative) Urine Blood (Negative) Urine Nitrite (Negative) Urine Bilirubin (Negative) Urine Urobilinogen (0.2) mg/dL Ur Leukocyte Esterase (Negative) U Hyaline Cast (Auto) (0-2) /LPF Urine Microscopic RBC (0-5) /HPF Urine Microscopic WBC (0-5) /HPF Ur Epithelial Cells (None Seen) /HPF Urine Bacteria (None Seen) /HPF Urine Culture Reflexed (NO) Monoscreen (NEGATIVE) Influenza Type A Ag (NEGATIVE) Influenza Type B Ag (NEGATIVE) RSV (PCR) (NEGATIVE) SARS-CoV-2 (PCR) (NEGATIVE) Group A Strep Antibody (NEGATIVE) - Progress Progress: improved Counseled pt/family regarding: lab results, diagnosis, need for follow-up, rad results <ADEN GUTIERREZ - Last Filed: 06/05/23 08:23> - Progress Progress Note: 06/05/23 08:19 42 years old patient is checked out to me at shift change from Dr. Christiansen with pending CTA chest and CT abdomen pelvis. Patient presented with right shoulder blade area pain. She received IV pain medication, during my evaluation she is pain-free. EKG is normal sinus rhythm with no acute ST elevations and negative troponins. Normal white count, fairly unremarkable chemistries. She does have positive mono. CTA chest is negative for PE or any other acute intrathoracic findings. No acute CT abdomen pelvis findings. This pain could be musculoskeletal. Recommended taking Tylenol ibuprofen and outpatient follow-up. Pain has been going on for quite some time and I do not think patient has ACS going on with 1 negative troponin I believe it is safe to send patient home. Recommended outpatient follow-up. Discussed signs symptoms of worsening needing return to ER which she seems understanding. (ADEN GUTIERREZ) Medical Desision Making - Diagnostic Testing Diagnostic test were ordered, analyzed, and reviewed by me: Yes Radiological Interpretation: Reviewed by me <ADEN GUTIERREZ - Last Filed: 06/05/23 08:23> <KANDY CHRISTIANSEN - Last Filed: 06/05/23 06:30> - Departure Departure Disposition: Home Critical Care Time: No <ADEN GUTIERREZ - Last Filed: 06/05/23 08:23> - Departure Clinical Impression: Mononucleosis, Right-sided chest pain Condition: Stable Referrals: OSMIN DUNHAM MD [Primary Care Provider] - Follow up with PCP 1 day Instructions: Mononucleosis (DC), Angina (DC) Additional Instructions: Take Tylenol/ibuprofen as needed. Increase hydration with plenty of fluids. Follow-up with primary care for reevaluation. Follow chest pain instructions and return to ER for intractable chest pain, difficulty breathing, palpitations etc.
[2023-06-05] MEDS ORDERED: Hydromorphone 1 mg/ml Injection ONE (06:27)
[2023-06-05] MEDS ORDERED: Zofran 4 MG/2 ML VIAL ONE (06:27)
[2023-06-05 06:28] LABS: Absolute Neutrophil Ct (ANC) 5.97 x10^3/uL (1.4-6.9); BASOPHIL % 0.5 % (0.0-0.4); Basophil (Absolute #) 0.05 x10^3/uL (0-0.4); Eosinophil % 2.2 % (0.00-5.0); Eosinophil (Absolute #) 0.23 x10^3/uL (0-0.5); Hemoglobin 13.6 g/dL (12.0-16.0); IMMATURE GRAN # 0.05 x10^3u/L (0.00-0.03); IMMATURE GRAN % 0.5 % (0.00-0.4); Lymphocyte (Absolute #) 3.36 x10^3/uL (1.0-4.6); Lymphocytes % 32.3 % (24.0-44.0); Mean Cell Volume 94.4 fL (78-100); Mean Corpuscular Hemoglobin 30.6 pg (26-32); Mean Corpuscular Hgb Concent. 32.4 g/dL (32-36); Mean Platelet Volume 8.7 fL (7.5-11.0); Monocyte (Absolute #) 0.75 x10^3/uL (0.0-1.3); Monocytes % 7.2 % (0.0-12.0); Neutrophil % 57.3 % (36.0-66.0); Platelet Count 275 x10^3/uL (150-450); Red Blood Count 4.45 x10^6/uL (4.1-5.4); Red Cell Distribution Width 13.3 % (11.5-14.0); White Blood Count 10.4 x10^3/uL (4.0-10.5)
[2023-06-05] MEDS ORDERED: Sodium Chloride 0.9% 1000 ML 1,000 ML ONE (06:28)
[2023-06-05] MEDS: Sodium Chloride 0.9% 1000 ML 1,000 ML IV STA (06:28)
[2023-06-05] MEDS: Zofran 4 MG/2 ML VIAL IV ONE (06:29)
[2023-06-05] MEDS: Hydromorphone 1 mg/ml Injection IV ONE (06:29)
[2023-06-05 06:46] LABS: ALBUMIN 4.2 g/dL (3.5-5.0); ANION GAP 13.8 MEQ/L (5-15); BILIRUBIN,TOTAL 1.7 mg/dL (0.2-1.3); Calcium 9.2 mg/dL (8.4-10.2); Creatinine 1 0.69 mg/dL (0.52-1.04); EST GLOMERULAR FILTRATION RATE 111.1 ML/MIN; Potassium 3.7 mmol/L (3.5-5.1); Total Protein 8.1 g/dL (6.3-8.2)
[2023-06-05 06:47] LABS: Appearance Clear (Clear); Bacteria None Seen /HPF (None Seen); Bilirubin Negative (Negative); Blood Negative (Negative); Epithelial Cells None Seen /HPF (None Seen); Glucose, Urine Negative (Negative); Hyaline Casts NONE SEEN /LPF (0-2); Ketones Negative (Negative); Leukocyte Esterase Trace (Negative); Nitrite Negative (Negative); Ph 5.5 (4.6-8.0); Protein,Urine Dip Negative (Negative); RBC 0-2 /HPF (0-5); Specific Gravity 1.025 (1.005-1.030); Urobilinogen 0.2 mg/dL (0.2)
[2023-06-05 06:48] LABS: HCG SERUM TEST NEGATIVE (NEGATIVE)
[2023-06-05 06:49] LABS: ADD URINE CULTURE? NO (NO)
[2023-06-05 07:05] LABS: INFLUENZA A NEGATIVE (NEGATIVE); INFLUENZA B NEGATIVE (NEGATIVE); RESPIRATORY SYNCTIAL VIRUS NEGATIVE (NEGATIVE); SARS-CoV-2 Xpert Express NEGATIVE (NEGATIVE)
[2023-06-05 07:33] VITALS: O2SAT 99
--- NOTE | 2023-06-05 07:52 | XRAY ---
CLINICAL HISTORY: vomiting COMPARISON: None. TECHNIQUE: CT of the abdomen and pelvis was performed with axial images as well as sagittal and coronal reconstruction images with intravenous contrast. FINDINGS: The visualized lung bases appear unremarkable. Liver is mildly enlarged, measuring 17 cm reflecting diffuse hypodensity. No focal lesions. Minimal pneumobilia is seen. Patent portal vein. Previous cholecystectomy. Unremarkable appearing pancreas. No pancreatic mass or ductal dilatation is seen. Unremarkable appearing spleen. The adrenal glands are normal. The kidneys appear unremarkable with no stones, cysts masses or hydronephrosis. The ureters are normal with no stones. Unremarkable abdominal aorta without specific evidence of aneurysm or dissection. IVC is normal. The visualized distal esophagus appears unremarkable. The stomach appears unremarkable. Unremarkable appearing duodenum. Small Bowel and colon are non-distended with no abnormality. An appendix is normal. No free air and no ascites. The bladder is unremarkable with no stones. Normal uterus and ovaries. No abdominal wall pathology is seen. IMPRESSION: 1. No acute abdominal or pelvic pathology. 2. Minimal intrahepatic pneumobilia. 3. Mild hepatomegaly with hepatic steatosis. Electronically Signed by: Johnathan Miller MD. (06/05/2023 07:48:37 EDT)
--- NOTE | 2023-06-05 07:57 | XRAY ---
CLINICAL HISTORY: right upper back pain COMPARISON: None. TECHNIQUE: Contiguous axial CT images of the chest were acquired with administration of intravenous contrast. Coronal and sagittal reconstructions were obtained. FINDINGS: The scanned pulmonary parenchyma shows no definite consolidative lesions. No free or encysted pleural effusion. Heart size is normal, and there is no pericardial effusion. No pathologically enlarged mediastinal, hilar or axillary lymph node identified. There is no definite mass lesion in the chest wall. Scanned upper abdomen is unremarkable. Thoracic vertebral spondylotic changes. IMPRESSION: Unremarkable CT study for the chest. Electronically Signed by: Johnathan Miller MD. (06/05/2023 07:52:50 EDT)
[2023-06-05 08:22] VITALS: BP 93/64; PULSE 56; RESP 11
[2023-06-05] MEDS ORDERED: NORCO 5/325 MG ONE (08:51)
[2023-06-05] MEDS: NORCO 5/325 MG PO ONE (08:53)
== END 2023-06-05 09:00 | disposition home or self-care (01) ==
LOC: ED 05:26
DX: B27.90 Infectious mononucleosis, unspecified without complication (principal); R07.9 Chest pain, unspecified; Z79.899 Other long term (current) drug therapy
CPT/HCPCS: 0241U; 36000; 36415; 71260; 74177; 80053; 81001; 82150; 83690; 84484; 84703; 85025; 86308; 87651; 93005; 96374; 96375; 99284; J1170; J2405; A9270-GY